=== PATIENT | male | born 1990 | race Caucasian/White ===

== ENCOUNTER 2019-03-18 17:47 | Emergency (ER) | payer SELFPAY ==
[2019-03-18 17:48] VITALS: BP 177/103; PULSE 78; RESP 18; TEMP 36.6; O2SAT 98
--- NOTE | 2019-03-18 18:27 | ED_ITS ---
HPI - Ear Problem <DANDRE Dominguez - Last Filed: 03/18/19 18:29> General Chief complaint: Ear Stated complaint: Feels like Left Eardrum Is About To Rupture Time Seen by Provider: 03/18/19 17:50 Source: patient Mode of arrival: Ambulatory Limitations: no limitations History of Present Illness HPI Narrative: The patient is a 28-year-old male of supraventricular tachycardia who presents with a chief complaint of left ear pain. He states that for the past few days he has had cough and congestion. He is trying Sudafed and Mucinex, and then his left ear pain got very bad today. He is concerned that his ear drum is ?about to burst.He states that he has a history of ear infections when he was younger. He denies any vomiting nausea fever or diarrhea or abdominal pain. He spoke with pharmacist who made recommendations, he states the iafv-jtj-awppeci medications are not working. Related Data Previous Rx's Medication Instructions Recorded pantoprazole 40 mg PO QDAY #90 tab 10/05/16 azithromycin See Rx Instructions .ROUTE 03/18/19 .COMPLEX #6 tab Allergies Allergy/AdvReac Type Severity Reaction Status Date / Time cephalexin [CEPHALEXIN] Allergy Severe CHEST Unverified 06/14/17 13:05 PAIN, ARMS 'REALLY RED' clindamycin [CLINDAMYCIN] Allergy Severe CHEST Unverified 06/14/17 13:05 PAIN, ARMS 'REALLY RED' Sulfa (Sulfonamide Allergy Intermediate RASH, Unverified 06/14/17 13:05 Antibiotics) DIAPHORESIS amoxicillin [AMOXICILLIN] Allergy Unknown Unverified 06/14/17 13:05 Penicillins [PENICILLINS] Allergy Unknown Unverified 06/14/17 13:05 omeprazole [OMEPRAZOLE] AdvReac Severe vomitting Unverified 06/14/17 13:05 Review of Systems <DANDRE Dominguez - Last Filed: 03/18/19 18:29> Review of Systems Narrative: GENERAL: Denies chills, fatigue, malaise, fever, sweats. HEENT: See HPI RESPIRATORY: Denies dyspnea, cough, wheezing, hemoptysis, sputum. CARDIOVASCULAR: Denies chest pain, palpitations, orthopnea, edema, GASTROINTESTINAL: Denies nausea, vomiting, abdominal pain, diarrhea, constipation, melena. : Denies dysuria, frequency, incontinence, hematuria, urinary retention. MUSCULOSKELETAL: denies weakness, joint pain, or bony pain SKIN: Denies rash, skin lesions, or other NEUROLOGIC: Denies weakness, headache, numbness, change in speech, confusion, seizures, incoordination. PSYCHIATRIC: No concerning psychosocial issues. 12 point review of systems is negative except for those stated above Patient History <DANDRE Dominguez - Last Filed: 03/18/19 18:29> Surgical History History of esophagogastroduodenoscopy (EGD) Status post colonoscopy Family History Mother Mitral valve prolapse Exam <DANDRE Dominguez - Last Filed: 03/18/19 18:29> Narrative Exam Narrative: GENERAL: This is a well-nourished, well-developed patient, in no acute distress HEAD: Atraumatic. Normocephalic. No temporal or scalp tenderness. EYES: Pupils equal round and reactive. Extraocular motions intact. No scleral icterus. No injection or drainage. ENT: Nose without bleeding, purulent drainage or septal hematoma. Throat without erythema, tonsillar hypertrophy or exudate. Uvula midline. Airway patent. Righ t TM pearly diaz. Left TM bulging and erythematous. NECK: Trachea midline. No JVD or lymphadenopathy. Supple, nontender, no meningeal signs. CARDIOVASCULAR: Regular rate and rhythm without murmurs, gallops, or rubs. RESPIRATORY: Clear to auscultation. Breath sounds equal bilaterally. No wheezes, rales, or rhonchi. Occasional cough. No increased respiratory effort. EXTREMITIES: No clubbing, cyanosis, or edema. No joint tenderness, effusion, or edema noted. BACK: Nontender without deformity or crepitance. No flank tenderness. NEURO: AOx3. SKIN: No rash or erythema on visible skin Initial Vital Signs Initial Vital Signs: Vital Signs Temperature 97.8 F 03/18/19 17:48 Pulse Rate 78 03/18/19 17:48 Respiratory Rate 18 03/18/19 17:48 Blood Pressure 177/103 H 03/18/19 17:48 Pulse Oximetry 98 03/18/19 17:48 <Dorothy Malcolm DO - Last Filed: 03/19/19 09:08> Initial Vital Signs Initial Vital Signs: Vital Signs Temperature 97.8 F 03/18/19 17:48 Pulse Rate 78 03/18/19 17:48 Respiratory Rate 18 03/18/19 17:48 Blood Pressure 177/103 H 03/18/19 17:48 Pulse Oximetry 98 03/18/19 17:48 Course <DANDRE Dominguez - Last Filed: 03/18/19 18:29> Vital Signs Vital signs: Vital Signs - 8 hr 03/18/19 17:48 Temperature 97.8 F Pulse Rate 78 Respiratory Rate 18 Blood Pressure 177/103 H Pulse Oximetry 98 <Dorothy Malcolm DO - Last Filed: 03/19/19 09:08> Vital Signs Vital signs: Vital Signs - 8 hr 03/18/19 17:48 Temperature 97.8 F Pulse Rate 78 Respiratory Rate 18 Blood Pressure 177/103 H Pulse Oximetry 98 Medical Decision Making <DANDRE Dominguez - Last Filed: 03/18/19 18:29> MDM Narrative Medical decision making narrative: The patient is a 28-year-old male who presents with a chief complaint of sudden onset of left ear pain. He has multiple drug allergies. He has otitis media on exam. Will start azithromycin. Discussed at length hzzt-hgu-gftvpon medications, adding a sinus rinse and Flonase. Patient has no questions or concerns upon discharge and states understanding of return precautions as well as follow-up care Discharge Plan Departure Patient Disposition: Home Clinical Impression: Otitis media Qualifiers: Otitis media type: unspecified Chronicity: acute Qualified Code(s): H66.90 - Otitis media, unspecified, unspecified ear Discharge Date/Time: 03/18/19 18:08 Instructions: Ear Infections (Alternative Therapy), DI for Otitis Media (Middle Ear Infection)-Child Activity Restrictions/Additional Instructions: I sent a prescription of azithromycin for your ear infection to [facility], [place]. This prescription should be about 10 dollars. Please continue to use aevh-rff-wwlunfd medications, had a sinus rinse and Flonase Please follow-up with primary care provider in the next few days. Please come back to emergency department for any acute concerns Prescriptions: New azithromycin 250 mg tablet See Rx Instructions .ROUTE .COMPLEX Qty: 6 RF: 0 No Action pantoprazole 40 MG tablet,delayed release (DR/EC) 40 mg PO QDAY Qty: 90 RF: 1 Referrals: Marilu Zarate DO [Primary Care Provider] -
== END 2019-03-18 18:08 | disposition home or self-care (01) ==
PROVIDERS: Emergency Provider Nurse Practitioner Family; PCP Family Medicine
DX: H66.90 Otitis media, unspecified, unspecified ear (principal)
CPT/HCPCS: 99281; 99283

== ENCOUNTER 2019-05-10 10:58 | Emergency (ER) | payer SELFPAY ==
[2019-05-10 11:13] VITALS: BP 153/77; PULSE 80; RESP 19; TEMP 36.5; O2SAT 96; BMI 31.7
--- NOTE | 2019-05-10 13:52 | DI.RAD.S_ITS ---
PROCEDURE: XR LUMBAR SPINE 2-3V INDICATIONS: back pain TECHNIQUE: 3 views of the lumbar spine were acquired. COMPARISON: None. FINDINGS: Bones: There are 5 lumbar-type vertebral bodies. The lowest intervertebral disk space is designated as L5-S1. The vertebral body heights are well-maintained without evidence to suggest an acute compression fracture. The bone mineralization is within normal limits. No prominent straightening/reversal of the normal lumbar lordosis is identified. There may be mild disc height loss at L4-5 and L5-S1 with associated early facet arthrosis. No spondylolisthesis is identified. Soft tissues: The soft tissues of the imaged abdomen and pelvis are within normal limits. IMPRESSION: 1. Lumbar straightening is suspicious for muscle spasm. Please correlate clinically. 2. Mild degenerative changes of the lower lumbar spine are suspected. Dictated by: Carlos Manuel Pearl M.D. on 05/10/2019 at 13:38 Approved by: Carlos Manuel Pearl M.D. on 05/10/2019 at 13:43
[2019-05-10] MEDS: CYCLOBENZAPRINE 10 MG TABLET PO (14:28)
[2019-05-10] MEDS: LIDOCAINE PATCH 1 EACH ADH..PATCH TOP (14:28)
[2019-05-10] MEDS: KETOROLAC 10 MG TABLET PO (14:33)
[2019-05-10] MEDS: HYDROCODONE/ACET 5/325 TABLET 2 TAB PO (15:45)
--- NOTE | 2019-05-10 16:12 | ED_ITS ---
HPI - Back Pain/Injury <DANDRE Dominguez - Last Filed: 05/10/19 19:32> General Chief Complaint: Back Pain/Injury Stated Complaint: 'my back' Time Seen by Provider: 05/10/19 13:26 Source: patient Mode of arrival: Ambulatory Limitations: no limitations History of Present Illness HPI Narrative: The patient is a 28-year-old male former smoker with history of SVT who presents with a chief complaint of lower back pain. He states he was lifting this morning, with a barbell on his shoulder any felt his legs wobble. He states he felt like his back while pulled. He states he had a full-size 15 kick barbell, with light weight. He states he put it down, then had severe back spasm in his right lower back. He states he did not take anything other than Tylenol. Went to work and had such bad pain that he fell over. He denies any incontinence of bowel, incontinence of bladder, saddle anesthesia, any numbness or tingling. He states that he was collapsing because his pain was so bad. Denies any previous back injuries. Related Data Previous Rx's Medication Instructions Recorded cyclobenzaprine 10 mg PO TID PRN #30 tab 05/10/19 hydrocodone-acetaminophen [[place]] 1 tab PO Q4-6H PRN #10 tab 05/10/19 ketorolac 10 mg PO TID PRN #14 tab 05/10/19 Allergies Allergy/AdvReac Type Severity Reaction Status Date / Time cephalexin [CEPHALEXIN] Allergy Severe CHEST Verified 05/10/19 11:17 PAIN, ARMS 'REALLY RED' clindamycin [CLINDAMYCIN] Allergy Severe CHEST Verified 05/10/19 11:17 PAIN, ARMS 'REALLY RED' Sulfa (Sulfonamide Allergy Intermediate RASH, Verified 05/10/19 11:17 Antibiotics) DIAPHORESIS amoxicillin [AMOXICILLIN] Allergy Unknown Verified 05/10/19 11:17 Penicillins [PENICILLINS] Allergy Unknown Verified 05/10/19 11:17 omeprazole [OMEPRAZOLE] AdvReac Severe vomitting Verified 05/10/19 11:17 Review of Systems <DANDRE Dominguez - Last Filed: 05/10/19 19:32> Review of Systems Narrative: GENERAL: Denies chills, fatigue, malaise, fever, sweats. HEENT: Denies sinus pain, ear pain, sore throat, difficulty swallowing, dizziness. RESPIRATORY: Denies dyspnea, cough, wheezing, hemoptysis, sputum. CARDIOVASCULAR: Denies chest pain, palpitations, orthopnea, edema, GASTROINTESTINAL: Denies nausea, vomiting, abdominal pain, diarrhea, constipation, melena. : Denies dysuria, frequency, incontinence, hematuria, urinary retention. MUSCULOSKELETAL: See HPI SKIN: Denies rash, skin lesions, or other NEUROLOGIC: Denies weakness, headache, numbness, change in speech, confusion, seizures, incoordination. PSYCHIATRIC: No concerning psychosocial issues. 12 point review of systems is negative except for those stated above Patient History <DANDRE Dominguez - Last Filed: 05/10/19 19:32> Surgical History History of esophagogastroduodenoscopy (EGD) Status post colonoscopy Family History Mother Mitral valve prolapse Social History Smoking Status: Former smoker Tobacco: How many years used: 2 Smokeless tobacco user: dissolvable tobacco (nicotine salt) alcohol intake: current (2 pints a wk ) substance use type: does not use Smoking Status: Former smoker alcohol intake frequency: a few times a month Alcohol type: beer Substance Use Type: does not use Exam <DANDRE Dominguez - Last Filed: 05/10/19 19:32> Narrative Exam Narrative: GENERAL: This is a well-nourished, well-developed patient, appears uncomfortable HEAD: Atraumatic. Normocephalic. No temporal or scalp tenderness. EYES: Pupils equal round and reactive. Extraocular motions intact. No scleral icterus. No injection or drainage. ENT: Nose without bleeding, purulent drainage or septal hematoma. Throat without erythema, tonsillar hypertrophy or exudate. Uvula midline. Airway patent. NECK: Trachea midline. No JVD or lymphade RESPIRATORY: Clear to auscultation. Breath sounds equal bilaterally. No wheezes, rales, or rhonchi. GASTROINTESTINAL: Abdomen soft, non-tender, nondistended. No hepato- splenomegaly, or palpable masses. No guarding. EXTREMITIES: No clubbing, cyanosis, or edema. No joint tenderness, effusion, or edema noted. Strength is equal upper and lower extremities bilaterally. BACK: No pain to C or T-spine palpation. Pain to L-spine palpation, pain to right paraspinal muscle palpation. No palpable step-offs or deformities. NEURO: AOx3. SKIN: No rash or erythema on visible skin. Initial Vital Signs Initial Vital Signs: Vital Signs Temperature 97.7 F 05/10/19 11:13 Pulse Rate 80 05/10/19 11:13 Respiratory Rate 05/10/19 11:13 Blood Pressure 153/77 H 05/10/19 11:13 Pulse Oximetry 96 05/10/19 11:13 <Luann Gamez MD - Last Filed: 05/11/19 07:07> Initial Vital Signs Initial Vital Signs: Vital Signs Temperature 97.7 F 05/10/19 11:13 Pulse Rate 80 05/10/19 11:13 Respiratory Rate 05/10/19 11:13 Blood Pressure 153/77 H 05/10/19 11:13 Pulse Oximetry 96 05/10/19 11:13 Scores <DANDRE Dominguez - Last Filed: 05/10/19 19:32> GCS [place] coma scale eye opening: Spontaneous Lucinda coma scale verbal response: Orientated Lucinda coma scale motor response: Obey commands Lucinda coma scale total score: 15 Course <DANDRE Dominguez - Last Filed: 05/10/19 19:32> Orders Ordered: Discontinued Medications Hydrocodone Bitart/Acetaminophen ([place] 5/325) 2 tab PO NOW ONE Stop: 05/10/19 15:22 Last Admin: 05/10/19 15:45 Dose: 2 tab Documented by: JUDAH Cyclobenzaprine HCl (Flexeril) 10 mg PO NOW ONE Stop: 05/10/19 13:53 Last Admin: 05/10/19 14:28 Dose: 10 mg Documented by: ARCHIE Ketorolac Tromethamine (Toradol) 60 mg IM NOW ONE Stop: 05/10/19 13:53 Last Admin: 05/10/19 14:28 Dose: Not Given Documented by: ARCHIE Ketorolac Tromethamine (Toradol) 10 mg PO NOW ONE Stop: 05/10/19 14:30 Last Admin: 05/10/19 14:33 Dose: 10 mg Documented by: ARCHIE Lidocaine (Lidoderm) 1 each TOP NOW ONE Stop: 05/10/19 13:53 Last Admin: 05/10/19 14:28 Dose: 1 each Documented by: ARCHIE Vital Signs Vital signs: Vital Signs - 8 hr 05/10/19 17:09 Pulse Rate 72 Respiratory Rate 18 Blood Pressure [Left Arm] 144/85 H Pulse Oximetry 99 <Luann Gamez MD - Last Filed: 05/11/19 07:07> Orders Ordered: Discontinued Medications Hydrocodone Bitart/Acetaminophen ([place] 5/325) 2 tab PO NOW ONE Stop: 05/10/19 15:22 Last Admin: 05/10/19 15:45 Dose: 2 tab Documented by: JUDAH Cyclobenzaprine HCl (Flexeril) 10 mg PO NOW ONE Stop: 05/10/19 13:53 Last Admin: 05/10/19 14:28 Dose: 10 mg Documented by: ARCHIE Ketorolac Tromethamine (Toradol) 60 mg IM NOW ONE Stop: 05/10/19 13:53 Last Admin: 05/10/19 14:28 Dose: Not Given Documented by: ARCHIE Ketorolac Tromethamine (Toradol) 10 mg PO NOW ONE Stop: 05/10/19 14:30 Last Admin: 05/10/19 14:33 Dose: 10 mg Documented by: ARCHIE Lidocaine (Lidoderm) 1 each TOP NOW ONE Stop: 05/10/19 13:53 Last Admin: 05/10/19 14:28 Dose: 1 each Documented by: ARCHIE Vital Signs Vital signs: Vital Signs - 8 hr 05/10/19 17:09 Pulse Rate 72 Respiratory Rate 18 Blood Pressure [Left Arm] 144/85 H Pulse Oximetry 99 MDM - Back Pain/Injury <DANDRE Dominguez - Last Filed: 05/10/19 19:32> Imaging Data Lumbar x-ray: Radiologist's Impression: Count includes the [facility] [address] [place] [id number] XRay Report Signed Patient: Tian Josue SMR#: [id number] : 1990Acct:[id number] Age/Sex: 28 / MDate of Service: 05/10/19 Loc: ED Accession Number: [id number] Procedure: XR lumbar spine 2-3V Ordering Provider: Shona Pino PROCEDURE: XR LUMBAR SPINE 2-3V INDICATIONS: back pain TECHNIQUE: 3 views of the lumbar spine were acquired. COMPARISON: None. FINDINGS: Bones: There are 5 lumbar-type vertebral bodies. The lowest intervertebral disk space is designated as L5-S1. The vertebral body heights are well-maintained without evidence to suggest an acute compression fracture. The bone mineralization is within normal limits. No prominent straightening/reversal of the normal lumbar lordosis is identified. There may be mild disc height loss at L4-5 and L5-S1 with associated early facet arthrosis. No spondylolisthesis is identified. Soft tissues: The soft tissues of the imaged abdomen and pelvis are within normal limits. IMPRESSION: 1. Lumbar straightening is suspicious for muscle spasm. Please correlate clinically. 2. Mild degenerative changes of the lower lumbar spine are suspected. Dictated by: Carlos Manuel Pearl M.D. on 05/10/2019 at 13:38 Approved by: Carlos Manuel Pearl M.D. on 05/10/2019 at 13:43 MDM Narrative Medical decision making narrative: The patient is a 28-year-old male who presents with a chief complaint of low back pain. He states he feels much improved with the above-stated therapies. He is able to ambulate with a walker he has no red flag symptoms of incontinence of bowel, incontinence of bladder, saddle anesthesia and states understanding that these are return precautions. I discussed at length the importance of following up with primary care provider, he may benefit from physical therapy or further evaluation. Discussed that narcotics cannot be combined with anything sedating, Flexeril cannot be sedating, lidocaine patches etcetera. Discussed at length coming back to the emergency department for any acute concerns. Patient felt comfortable going home. Patient has no questions or concerns upon discharge and states understanding of return precautions as well as follow-up care. Discharge Plan Departure Patient Disposition: Home Clinical Impression: Lumbar back pain Acute back pain Qualifiers: Back pain location: low back pain Back pain laterality: right Sciatica presence: with sciatica Sciatica laterality: sciatica of right side Qualified Code(s): M54.41 - Lumbago with sciatica, right side Discharge Date/Time: 05/10/19 17:30 Instructions: DI for Low Back Pain, DI for Back Pain With Sciatica, DI for Back Spasm, DI for Back Strain or Sprain Activity Restrictions/Additional Instructions: Thank you for trusting us with your care today. Your lower back x-ray showed no fractures, but was suspicious for early did which entered of changes and muscle spasm. According to [facility], your [place] prescription should cost approximately [address] at [facility], the cyclobenzaprine should be approximately 9 dollars, and the ketorolac should be approximately 25 dollars. I also suggest exex-agd-oppeogh lidocaine patches. I have given you a prescription of a narcotic for pain. Be aware that this can be constipating and sedating. I encouraged taking with a stool softener, pushing fluids and fiber. Do not take and drive, operate heavy machinery, etc. Do not combine it with any other sedating substances such as alcohol. The combination of narcotics and alcohol and/or other sedatives can be lethal. Please be aware that we do not provide refills of controlled substances in the emergency department. Please follow up with her primary care provider. Please be aware that the Flexeril can also be sedating I have given you a prescription of Toradol. This is an NSAID. Do not combine it with other NSAIDs such as Aleve or ibuprofen. I suggest taking it with some food, as it can irritate your stomach. Please come back to the emergency department for any acute concerns such as incontinence of bowel, incontinence of bladder or numbness in your groin. As I discussed back pain can take a while to get better. Please follow-up with primary care provider. You may benefit from physical therapy etcetera. Prescriptions: New hydrocodone-acetaminophen [[place]] 5-325 mg tablet 1 tab PO Q4-6H PRN (Reason: pain) Qty: 10 RF: 0 cyclobenzaprine 10 mg tablet 10 mg PO TID PRN (Reason: muscle spasm) Qty: 30 RF: 0 ketorolac 10 mg tablet 10 mg PO TID PRN (Reason: pain) Qty: 14 RF: 0 Referrals: Johnnie Wood MD [Primary Care Provider] -
[2019-05-10 17:09] VITALS: BP 144/85; PULSE 72; RESP 18; O2SAT 99
== END 2019-05-10 17:30 | disposition home or self-care (01) ==
PROVIDERS: Emergency Provider Nurse Practitioner Family; PCP Internal Medicine Cardiovascular Disease
DX: M54.6 Pain in thoracic spine (principal); M54.41 Lumbago with sciatica, right side
CPT/HCPCS: 72100; 99283

== ENCOUNTER 2019-05-14 19:45 | Emergency (ER) | payer SELFPAY ==
[2019-05-14 20:03] VITALS: BP 157/94; PULSE 84; RESP 19; TEMP 36.5; O2SAT 97; BMI 31.7
--- NOTE | 2019-05-14 22:50 | ED_ITS ---
HPI - Back Pain/Injury General Chief Complaint: Back Pain/Injury Stated Complaint: UNABLE TO MOVE Time Seen by Provider: 05/14/19 22:50 Source: patient Mode of arrival: Ambulatory Limitations: no limitations History of Present Illness HPI Narrative: 20-year-old male comes emergency department complaint of back pain. Patient acutely injured his back Monday. He states he was lifting weights. He was not lifting very heavy weight but he felt some spasm in his back. He stopped did not continue with his workout. Patient states that throughout the day he had increasing tightness in his back that radiated the anand k of his legs and to his groin. He states that he does have this heat that sort of running down into his legs and groin area. He states that there is no numbness. He can feel touch. He denies any weakness. He denies any loss of bowel or bladder control. He has not any fevers. He has not had back issues in past. He was doing better today his spend most of his time in bed taking medications as prescribed when they went out to dinner he states when he walked back to his car he did fairly well but then getting in and out of his car his pain significantly increased. Patient states that now it is quite difficult for him to get around. He has been taking, [place] and cyclobenzaprine 3 times daily his most recent dose was at 7:30 p.m.. He has not had any prior back surgeries, he does have a history of SVT was offered ablation but deferred. 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 He denies any other current medical issues. Related Data Previous Rx's Medication Instructions Recorded cyclobenzaprine 10 mg PO TID PRN #30 tab 05/10/19 hydrocodone-acetaminophen [[place]] 1 tab PO Q4-6H PRN #10 tab 05/10/19 ketorolac 10 mg PO TID PRN #14 tab 05/10/19 oxycodone 5 mg PO Q8H PRN #7 tab 05/15/19 Allergies Allergy/AdvReac Type Severity Reaction Status Date / Time cephalexin [CEPHALEXIN] Allergy Severe CHEST Verified 05/10/19 11:17 PAIN, ARMS 'REALLY RED' clindamycin [CLINDAMYCIN] Allergy Severe CHEST Verified 05/10/19 11:17 PAIN, ARMS 'REALLY RED' Sulfa (Sulfonamide Allergy Intermediate RASH, Verified 05/10/19 11:17 Antibiotics) DIAPHORESIS amoxicillin [AMOXICILLIN] Allergy Unknown Verified 05/10/19 11:17 Penicillins [PENICILLINS] Allergy Unknown Verified 05/10/19 11:17 omeprazole [OMEPRAZOLE] AdvReac Severe vomitting Verified 05/10/19 11:17 Review of Systems Review of Systems ROS Unobtainable: All systems reviewed & are unremarkable except as noted in HPI and below Patient History Surgical History History of esophagogastroduodenoscopy (EGD) Status post colonoscopy Social History Smoking Status: Former smoker Tobacco: How many years used: 2 Smokeless tobacco user: dissolvable tobacco (nicotine salt) alcohol intake: current (2 pints a wk ) substance use type: does not use Smoking Status: Former smoker alcohol intake frequency: a few times a month Alcohol type: beer Substance Use Type: does not use Exam Narrative Exam Narrative: GENERAL: Alert and oriented x three, well-nourished, well- appearing male in moderate distress. HEENT: Head normocephalic, atraumatic, EOMI, pupils reactive, face symmetric, moist mucous membranes NECK: Supple, full range of motion CARDIOVASCULAR: Regular rate and rhythm without murmurs, rubs or gallops. RESPIRATORY: Breath sounds equal bilaterally, no wheezes rales or rhonchi. ABDOMEN: Soft, nontender. Normoactive bowel sounds all 4 quadrants. No guarding or rebound, rigidity, no mass : No CVA tenderness. BACK: No cervical, thoracic or lumbar vertebral point tenderness. Patient has decreased range of motion. Patient prefers to be seated upright. Rectal exam is deferred, no saddle anesthesia. Patient has increased pain with straight leg raise bilaterally. Muscle strength is 5/5 in lower extremities, DTRs are 2/4 and lower extremities. Dorsalis pedis and tibialis pulses are 2+ and lower extremities. Sensation is intact in the lower extremities. EXTREMITIES: Normal range of motion, no clubbing or edema. Neurovascularly intact NEUROLOGICAL: Cranial nerves II through XII grossly intact. Moving all extremities SKIN: Warm, dry, no petechiae, no rashes or lesions. Initial Vital Signs Initial Vital Signs: Vital Signs Temperature 97.7 F 05/14/19 20:03 Pulse Rate 84 05/14/19 20:03 Respiratory Rate 19 05/14/19 20:03 Blood Pressure 157/94 H 05/14/19 20:03 Pulse Oximetry 97 05/14/19 20:03 Course Orders Ordered: ED Orders 05/14/19 23:27 CT lumbar spine wo con Stat Discontinued Medications Diazepam (Valium) 10 mg PO NOW ONE Stop: 05/14/19 23:22 Last Admin: 05/14/19 23:37 Dose: 10 mg Documented by: RODRI Ketorolac Tromethamine (Toradol) 10 mg PO NOW ONE Stop: 05/14/19 23:22 Last Admin: 05/14/19 23:37 Dose: 10 mg Documented by: RODRI Oxycodone HCl (Percolone) 10 mg PO NOW ONE Stop: 05/14/19 23:22 Last Admin: 05/14/19 23:37 Dose: 10 mg Documented by: RODRI Vital Signs Vital signs: Vital Signs - 8 hr 05/14/19 20:03 Temperature 97.7 F Pulse Rate 84 Respiratory Rate 19 Blood Pressure 157/94 H Pulse Oximetry 97 MDM - Back Pain/Injury Imaging Data L-spine CT: Radiologist's Impression: No acute osseous or alignment abnormality lumbar spine. Moderate posterior disc bulge at L4-L5. Small posterior disc bulge at L5-S1. Small stone present on the inferior endplate of L4. No significant neural foraminal narrowing at either location. Soft tissues are unremarkable. [facility] Narrative Medical decision making narrative: Recheck after medications, patient states he is not feeling that much better but he is lying on his side reclining and appears much more comfortable. We reviewed his CT findings he does have a disc bulge at L4-L5 and L5-S1. Reviewed what these findings knee pain, signs and symptoms to watch for return precautions. I recommended he follow-up with his primary care. He found the medications from this evening helpful. Given a short prescription for oxycodone which she can take in place of his hydrocodone if needed he still does have some medication at home and recommend to continue with his usual regimen otherwise. Patient was given a work note for several more days and encouraged to follow up with his primary care as he may need long- term follow-up if he continues to have symptoms. Discharge Plan Departure Patient Disposition: Home Clinical Impression: Back pain Instructions: DI for Low Back Pain Activity Restrictions/Additional Instructions: Follow-up with her primary care physician for recheck, you do show seem bulging discs at L4-L5 region and L5-S1 region in your lower spine you can discuss options for future treatment. Take medications as prescribed, these medications can make you sleepy, do not drive, perform hazardous activities or make any major decisions while taking this medication. You may take oxycodone instead of hydrocodone with your usual combination of medications. Do not take both of these together. Prescription was sent to [facility]. Return to the ER for fevers greater 100.4 F, loss of bowel or bladder control, new numbness, weakness or inability to use your extremities, saddle anesthesia, passing out, new chest pain or shortness of breath, persistent vomiting or other new or concerning symptoms. Prescriptions: New oxycodone 5 mg tablet 5 mg PO Q8H PRN (Reason: pain) Qty: 7 RF: 0 No Action hydrocodone-acetaminophen [[place]] 5-325 mg tablet 1 tab PO Q4-6H PRN (Reason: pain) Qty: 10 RF: 0 cyclobenzaprine 10 mg tablet 10 mg PO TID PRN (Reason: muscle spasm) Qty: 30 RF: 0 ketorolac 10 mg tablet 10 mg PO TID PRN (Reason: pain) Qty: 14 RF: 0 Referrals: Johnnie Wood MD [Primary Care Provider] - Stand Alone Forms: Work Release Note
--- NOTE | 2019-05-14 23:27 | DI.CT.S_ITS ---
PROCEDURE: CT LUMBAR SPINE WO CON INDICATIONS: lower lumbar pain, worsening with time. TECHNIQUE: Noncontrast 3 mm thick sections acquired from the T12 level to the sacrum. Sagittal and coronal reformats were constructed. For radiation dose reduction, the following was used: automated exposure control. COMPARISON: None. FINDINGS: Image quality: Excellent. Bones: There is normal bony alignment. No acute vertebral body compression fractures. No suspicious lytic or blastic bony lesions. There is moderate posterior disc bulge at L4-L5 and mild posterior disc bulge at L3-L4 and L5-S1. Central spinal caliber is moderately narrowed at L4-L5 and mildly narrowed at L5-S1. The neural foramina are patent. No pars defects. Soft tissues: No retroperitoneal masses or hematomas. Visualized aorta is normal in caliber. IMPRESSION: 1. No acute images and lumbar spine. 2. Degenerative disc disease at L3-L4, L4-L5 and L5-S1. 3. Moderate central canal stenosis at L4-L5. Dictated by: Mustapha Muir M.D. on 05/15/2019 at 7:52 Approved by: Mustapha Muir M.D. on 05/15/2019 at 8:00
[2019-05-14] MEDS: KETOROLAC 10 MG TABLET PO (23:37)
[2019-05-14] MEDS: diazePAM 5 MG TABLET 10 MG PO (23:37)
[2019-05-14] MEDS: OXYCODONE IR 5 MG TABLET 10 MG PO (23:37)
[2019-05-15 01:30] VITALS: BP 118/78; PULSE 66; RESP 15; O2SAT 94
== END 2019-05-15 01:30 | disposition home or self-care (01) ==
PROVIDERS: Emergency Provider Emergency Medicine; PCP Internal Medicine Cardiovascular Disease
DX: M54.9 Dorsalgia, unspecified (principal)
CPT/HCPCS: 72131; 99283; 99284

== ENCOUNTER 2019-11-05 12:29 | Outpatient (RCR) | payer OTHER, MEDICAID, SELFPAY ==
--- NOTE | 2019-11-05 16:10 | PT.OPPOC ---
Physical, Occupational & Speech Therapy At [facility] Current Diagnoses Lumbago with sciatica, right side (11/05/19) Other abnormalities of gait and mobility (11/05/19) Abnormal posture (11/05/19) Weakness (11/05/19) Visit Care Team Role Provider Type Mayank Wood DO Attending Provider Physician Primary Care Provider Referring Provider Specialty: [facility] Address: [address] [place] [address], [facility] Email: [email or web address] Plan Of Care PT-OP-T Assessment and Plan Start: 11/05/19 12:19 Freq: Status: Active Protocol: Document 11/05/19 12:59 [facility] (Rec: 11/05/19 13:49 [facility] [id number]) Physical Therapy Assessment Rehab Potential Rehabilitation Potential Good Evaluation Complexity Number of Personal Factors/Comorbidities 1-2 Number of Body Systems Impaired 4 or More Clinical Presentation at Evaluation Evolving Impairments Impairments Activity Tolerance,Balance, Functional Activities, Functional Mobility,Gait,Pain, Posture,ROM,Soft Tissue Mobility,Strength Goals posture Security Controls Assessor Goal (LTG) Pt will present with good posture as demonstrated by 4/5 on VCT LTG Duration 01/05/20 work Short Term Goal (STG) Pt will demo good lifting mechanics STG Duration 12/05/19 Security Controls Assessor Goal (LTG) Pt will be able to complete work without any inc in pain. LTG Duration 01/05/20 strength Short Term Goal (STG) Pt will be indep with HEP. STG Duration 12/05/19 Security Controls Assessor Goal (LTG) Pt will show 5/5 strength in B LE in all planes and LPM & EFT of at least 4/5 to show improved core stability to allow him to do the requirements of his job. LTG Duration 01/05/20 gait Long-Term Goal (LTG) pt will have good gait mechanics without cueing. LTG Duration 01/05/20 Assessment Summary Assessment Pt presents with LBP with occasional radicaular pain into L ant thigh, and B knee pain that makes it difficult to participate in his job. He wears a back brace all day to prevent pain from getting too bad, but does get pain with some lifting and long hours of work. He would benefit from skilled PT to work on appropriate movement patterns, gait mechanics, improve ROM, and inc core stability & LE strength. Physical Therapy Plan Frequency and Duration Frequency of Treatment 1-2x/week Duration of Treatment 2 months Plan of Care Start Date 11/05/19 Plan of Care End Date 01/05/20 Therapeutic Interventions Therapeutic Interventions Aquatic Therapy,Balance Training,Gait Training,Home Exercise Program,Joint Mobilizations,Manual Therapy, Neuromuscular Re-education, Patient/Caregiver Education, Self-Care/Home Management,Soft Tissue Mobilization,Taping, Therapeutic Activities, Therapeutic Exercises Modalities Cold Pack/Ice Massage,Electric Stimulation,Hot Packs Next Visit Focus/Plan Next Note Type Treatment Note Next Visit Plan work on core stability & posture, review HEP, manual hip inf mobs & hip on axis Plan of Care Dates Plan of Care Start Date 11/05/19 Plan of Care End Date 01/05/20 Electronically Signed by: Amaris Melvin, PT 11/06/19 0738 Please Sign and Return: I have reviewed this Plan of Care and certify that the skilled therapy services above are required to meet the patient?s needs. Physician Signature Date Printed Name and Credentials Clinical Instructor Signature Printed Name and Credentials
--- NOTE | 2019-11-05 16:10 | PT.OIE ---
Current Diagnoses Lumbago with sciatica, right side (11/05/19) Other abnormalities of gait and mobility (11/05/19) Abnormal posture (11/05/19) Weakness (11/05/19) Past Medical History (Last Updated 06/17/19 @ 15:14 by Mayank Wood DO) Inguinal hernia (Acute) Past Surgical History (Last Reviewed 05/14/19 @ 23:27 by Shona Barnes DO) History of esophagogastroduodenoscopy (EGD) Status post colonoscopy Visit Care Team Role Provider Type Mayank Wood DO Attending Provider Physician Primary Care Provider Referring Provider Specialty: [facility] Address: [address] [place] [address], [facility] Email: [email or web address] Physical Therapy Initial Evaluation PT-OP-A Visit Information Start: 11/05/19 12:19 Freq: Status: Active Protocol: Document 11/05/19 12:59 [facility] (Rec: 11/05/19 13:49 [facility] [id number]) Out-Patient Physical Therapy Visit Information Visit Information Visit Type Initial Evaluation Visit Start Time 13:01 Visit Stop Time 13:45 Total Visit Minutes 44 Visit Number 1 Number of LIABILITY CLAIMS MANAGER Visits 0 PT-OP-B Current Condition Start: 11/05/19 12:19 Freq: Status: Active Protocol: Document 11/05/19 12:59 [facility] (Rec: 11/05/19 13:49 [facility] [id number]) Current Condition History of Current Condition Onset Date May Current Complaints back pain & L ant thigh pain, R knee pain History of Current Condition In May, pt was using Stream5 to squat and 3rd time going up, his back shook. He started having mult mm spasms and legs gave out. He couldn't walk for a week then used a wlaker for a week. Then it went away. now, he is getting a shooting pain inside his leg in ant thigh. Chiro thinks it is how he is sleeping. He started using a a pillow btwn his legs and leg pain ahs been better. Has to wear aback brace (meuller) at work and move slow to prevent pain. When not wearing it, he has to be more aware of his back and keeping his back straight. Pt reports pain is intermittent. Pt has history of CP w/ mostly affecting his legs. He toe walked until HS then he focused on walking with heel stride. He IR his LEs and toe walks at the end of a 13 hr day. Pt reprots B knees have been hurting when bending and L sometimes goes away but R knee isn't going away. squatting is difficult. Pt is concerned about back going out again. Pt has history of RA in family and has changed to plant based diet which has helped his joints. Sometimes when reaching in the truck, he gets back pain and R shoulder blade area feels like its tearing. He works up to 80 hours. Pt reprots when he takes his back brace off, he has difficulty sitting at first. only small tweak to back prior to this injury Prior Treatments and Tests chiropractor since June lumbar CT: IMPRESSION: 1. No acute images and lumbar spine. 2. Degenerative disc disease at L3-L4, L4-L5 and L5-S1. 3. Moderate central canal stenosis at L4-L5. Treatment Goals Patient/Caregiver Goals improve fluidity of walk and run, wants to make sure he doesn't get worse PT-OP-C Subjective Start: 11/05/19 12:19 Freq: Status: Active Protocol: Document 11/05/19 12:59 [facility] (Rec: 11/05/19 13:49 [facility] [id number]) Patient Questionnaires Oswestry Low Back Index Oswestry Score 22% OP-PT Pain Assessment Location LBP Pain Location Details lumbosacral down center Intensity 5 Scale Used Numeric (0 - 10) Description Sharp,With Movement Description- Other thigh is 8/10-deep pain; bakc painfeels like going out. knee 4/10 Frequency Intermittent Variations/Patterns B knees, L ant thigh Pain Aggravating Factors Lifting Other Pain Aggravating Factors twisting, work day Other Pain Alleviating Factors lay odwn on back and abd legs while on wall, walking, tigerbalm PT-OP-F Manual Assessment Start: 11/05/19 12:19 Freq: Status: Active Protocol: Document 11/05/19 12:59 [facility] (Rec: 11/05/19 13:49 [facility] [id number]) Manual Assessments Soft Tissue Assessment Soft Tissue Mobility Assessment R> L ES tightness ; tight HS, calf & PF Joint Mobility Assessment Joint Mobility Assessment equal greater troch & pelvis height PT-OP-G Mobility & Gait Start: 11/05/19 12:19 Freq: Status: Active Protocol: Document 11/05/19 12:59 [facility] (Rec: 11/05/19 13:49 [facility] [id number]) OP Gait Assessment Comments Gait Comments IR of thighs, LUE rigid during gait, dec wt acceptnace on LLE PT-OP-J Posture/Palpation/Skin Start: 11/05/19 12:19 Freq: Status: Active Protocol: Document 11/05/19 12:59 [facility] (Rec: 11/05/19 13:49 [facility] [id number]) Posture Evaluation [facility] Postural Classification System Wally Postural Classifications Posterior/Anterior Vertebral Compression Test 1 Elbow Flexion Test 3 Lumbar Protective Mechanism Left AP 3 Lumbar Protective Mechanism Right AP 1 Lumbar Protective Mechanism Left PA 2 Lumbar Protective Mechanism Right PA 1 PT-OP-K Range of Motion Start: 11/05/19 12:19 Freq: Status: Active Protocol: Document 11/05/19 12:59 [facility] (Rec: 11/05/19 13:49 [facility] [id number]) Lumbar Spine Range of Motion Lumbar Spine Active Degrees Flexion 34 Extension 4 Rotation Left 40 Rotation Right 34 Lateral Flexion Left 21 Lateral Flexion Right 15 ROM Limitations Soft Tissue Tightness Comments pain w/ flex; relief w/ext; feels tight w/ rot PT-OP-L Special Tests Start: 11/05/19 12:19 Freq: Status: Active Protocol: Document 11/05/19 12:59 [facility] (Rec: 11/05/19 13:49 [facility] [id number]) Special Tests Lumbar Spine Special Tests Straight Leg Raise Test Results pain in ant hip of hip pulled to chest Cliff Test Results about 40-45 deg B HS tightness Slump Test Results neg B PT-OP-M Strength Start: 11/05/19 12:19 Freq: Status: Active Protocol: Document 11/05/19 12:59 [facility] (Rec: 11/05/19 13:49 [facility] [id number]) Hip Strength Hip Manual Muscle Testing Right Flexion (L2) 4+ Good+ Extension (S1) 4- Good- Abduction 4+ Good+ External Rotation 4+ Good+ Internal Rotation 5 Normal Left Flexion (L2) 4+ Good+ Extension (S1) 4- Good- Abduction 5 Normal External Rotation 4+ Good+ Internal Rotation 5 Normal Knee Strength Knee Manual Muscle Testing Right Flexion (S2) 4+ Good+ Extension (L3) 5 Normal Comments pain w/ flex Left Flexion (S2) 5 Normal Extension (L3) 5 Normal Ankle/Foot Strength Ankle and Foot Manual Muscle Testing Right Dorsiflexion (L4) 5 Normal Left Dorsiflexion (L4) 5 Normal PT-OP-Q Treatments Start: 11/05/19 12:19 Freq: Status: Active Protocol: Document 11/05/19 12:59 [facility] (Rec: 11/05/19 13:49 [facility] [id number]) Therapeutic Exercises Supine Exercises pelvic tilt Supine Exercise Name post Reps/Minutes 10 Comments tactile cueing Standing Exercises fwd flex stretch Side bilateral Reps/Minutes 30sec Comments reaching onto counter- stretches HS & calf Other Exercises cat/camel Reps/Minutes 10 PT-OP-T Assessment and Plan Start: 11/05/19 12:19 Freq: Status: Active Protocol: Document 11/05/19 12:59 [facility] (Rec: 11/05/19 13:49 [facility] [id number]) Physical Therapy Assessment Rehab Potential Rehabilitation Potential Good Evaluation Complexity Number of Personal Factors/Comorbidities 1-2 Number of Body Systems Impaired 4 or More Clinical Presentation at Evaluation Evolving Impairments Impairments Activity Tolerance,Balance, Functional Activities, Functional Mobility,Gait,Pain, Posture,ROM,Soft Tissue Mobility,Strength Goals posture Custodial Goal (LTG) Pt will present with good posture as demonstrated by 4/5 on VCT LTG Duration 01/05/20 work Short Term Goal (STG) Pt will demo good lifting mechanics STG Duration 12/05/19 Custodial Goal (LTG) Pt will be able to complete work without any inc in pain. LTG Duration 01/05/20 strength Short Term Goal (STG) Pt will be indep with HEP. STG Duration 12/05/19 Custodial Goal (LTG) Pt will show 5/5 strength in B LE in all planes and LPM & EFT of at least 4/5 to show improved core stability to allow him to do the requirements of his job. LTG Duration 01/05/20 gait Custodial Goal (LTG) pt will have good gait mechanics without cueing. LTG Duration 01/05/20 Assessment Summary Assessment Pt presents with LBP with occasional radicaular pain into L ant thigh, and B knee pain that makes it difficult to participate in his job. He wears a back brace all day to prevent pain from getting too bad, but does get pain with some lifting and long hours of work. He would benefit from skilled PT to work on appropriate movement patterns, gait mechanics, improve ROM, and inc core stability & LE strength. Physical Therapy Plan Frequency and Duration Frequency of Treatment 1-2x/week Duration of Treatment 2 months Plan of Care Start Date 11/05/19 Plan of Care End Date 01/05/20 Therapeutic Interventions Therapeutic Interventions Aquatic Therapy,Balance Training,Gait Training,Home Exercise Program,Joint Mobilizations,Manual Therapy, Neuromuscular Re-education, Patient/Caregiver Education, Self-Care/Home Management,Soft Tissue Mobilization,Taping, Therapeutic Activities, Therapeutic Exercises Modalities Cold Pack/Ice Massage,Electric Stimulation,Hot Packs Next Visit Focus/Plan Next Note Type Treatment Note Next Visit Plan work on core stability & posture, review HEP, manual hip inf mobs & hip on axis
--- NOTE | 2020-02-03 17:33 | PT.OPDS ---
Current Diagnoses Lumbago with sciatica, right side (11/05/19) Other abnormalities of gait and mobility (11/05/19) Abnormal posture (11/05/19) Weakness (11/05/19) Visit Care Team Role Provider Type Myaank Wood DO Attending Provider Physician Primary Care Provider Referring Provider Specialty: [facility] Practice Address: [address] [place] [address], [facility] Email: [email or web address] Visit Number Visit Number 1 Discharge Summary PT-OP-T Assessment and Plan Start: 11/05/19 12:19 Freq: Status: Active Protocol: Document 02/03/20 17:32 [facility] (Rec: 02/03/20 17:33 [facility] [id number]) Physical Therapy Assessment Assessment Summary Assessment Pt only seen for eval d/t difficulty coordinating appointments with his work week. He is working very long hours and has very random days off, making it mroe difficult to schedule appointments. Pt reports with the holiday season, he does not think he will be able to make any appointmetns so DC at this time and pt encouraged to get a referal for PT again when he is able to attend in the future. Physical Therapy Plan Discharge Physical Therapy Discharge Reasons No Longer Attending PT
== END 2020-03-05 08:45 ==
LOC: PHYS 12:29
PROVIDERS: PCP Family Medicine; Referring Provider Family Medicine; Visit Provider Family Medicine
DX: M54.41 Lumbago with sciatica, right side (principal); R53.1 Weakness; R29.3 Abnormal posture; R26.89 Other abnormalities of gait and mobility
CPT/HCPCS: 97110; 97162

== ENCOUNTER 2020-09-29 12:25 | Emergency (ER) | payer OTHER, MEDICAID, SELFPAY ==
[2020-09-29] VITALS (8 sets, daily range): BP systolic 102–146; BP diastolic 51–89; PULSE 49–84; RESP 15; TEMP 36.6; O2SAT 98–100; BMI 24.3
--- NOTE | 2020-09-29 15:05 | ED.ABDPAIN ---
HPI - Abdominal Pain General Chief Complaint: Abdominal Pain Stated Complaint: stomach/bowel issue sent from clinic/[facility] Time Seen by Provider: 09/29/20 12:39 Source: patient Mode of arrival: Ambulatory Limitations: no limitations History of Present Illness HPI narrative: 30-year-old male former smoker with history of SVT presents at the request of the walk-in clinic for evaluation of a bulging painful lump in his right lower quadrant that comes and goes frequently. Is currently absent he is not having any pain. He lifts heavy objects frequently at work and was sent for concern of the possibility of hernia. He denies any trouble with bowel movements with the passage of gas. He has had no nausea or vomiting. He has no fever or chills. He is otherwise well and free of complaint Related Data Previous Rx's Medication Instructions Recorded montelukast 10 mg tablet 10 mg PO BEDTIME #30 tab 06/03/20 (Singulair) Allergies Allergy/AdvReac Type Severity Reaction Status Date / Time cephalexin [CEPHALEXIN] Allergy Severe CHEST Verified 09/29/20 12:41 PAIN, ARMS 'REALLY RED' clindamycin [CLINDAMYCIN] Allergy Severe CHEST Verified 09/29/20 12:41 PAIN, ARMS 'REALLY RED' Sulfa (Sulfonamide Allergy Intermediate RASH, Verified 09/29/20 12:41 Antibiotics) DIAPHORESIS amoxicillin [AMOXICILLIN] Allergy Unknown Verified 09/29/20 12:41 Penicillins [PENICILLINS] Allergy Unknown Verified 09/29/20 12:41 omeprazole [OMEPRAZOLE] AdvReac Severe vomitting Verified 09/29/20 12:41 Review of Systems Review of Systems Narrative: GENERAL: Denies chills, fatigue, malaise, fever, sweats. HEENT: Denies sinus pain, ear pain, sore throat, difficulty swallowing, dizziness. RESPIRATORY: Denies dyspnea, cough, wheezing, hemoptysis, sputum. CARDIOVASCULAR: Denies chest pain, palpitations, orthopnea, edema, GASTROINTESTINAL: See HPI. : Denies dysuria, frequency, incontinence, hematuria, urinary retention. MUSCULOSKELETAL: denies weakness, joint pain, or bony pain SKIN: Denies rash, skin lesions, or other NEUROLOGIC: Denies weakness, headache, numbness, change in speech, confusion, seizures, incoordination. PSYCHIATRIC: No concerning psychosocial issues. 12 point review of systems is negative except for those stated above Patient History Medical History (Updated 09/29/20 @ 17:26 by Idris Proctor DO) History of asthma Inguinal hernia Seasonal allergic rhinitis Surgical History History of esophagogastroduodenoscopy (EGD) Status post colonoscopy Family History Mother Mitral valve prolapse Social History Smoking Status: Former smoker Tobacco: How many years used: 2 Smokeless tobacco user: dissolvable tobacco (nicotine salt) alcohol intake: current (2 pints a wk ) substance use type: does not use Smoking Status: Former smoker alcohol intake frequency: a few times a month Alcohol type: beer Substance Use Type: does not use Exam Narrative Exam Narrative: GENERAL: [30] year old patient appears stated age. Well-developed patient, in mild distress. HEAD: Atraumatic. Normocephalic. EYES: Pupils equal round and reactive. Extraocular motions intact. No scleral icterus. No injection or drainage. ENT: Nose without bleeding, purulent drainage. Throat without erythema, tonsillar hypertrophy or exudate. Airway patent. NECK: Trachea midline. Non tender CARDIOVASCULAR: Regular rate and rhythm without murmurs, gallops, or rubs. RESPIRATORY: Clear to auscultation. Breath sounds equal bilaterally. No wheezes, rales, or rhonchi. GASTROINTESTINAL: Abdomen soft, non-tender, nondistended. No obvious hernia palpated while lying, with bearing down or in the standing position. Patient does state that he can feel it moving and coming up on occasion, I do question whether not he has a rent or early hernia EXTREMITIES: No edema or joint tenderness. BACK: Nontender without deformity or crepitance. No flank tenderness. NEURO: AOx3. SKIN: No rash or erythema of visible areas Initial Vital Signs Initial Vital Signs: Vital Signs Temperature 97.8 F 09/29/20 12:41 Pulse Rate 70 09/29/20 12:41 Respiratory Rate 15 09/29/20 12:41 Blood Pressure 146/89 H 09/29/20 12:41 Pulse Oximetry 100 09/29/20 12:41 Course Orders Ordered: ED Orders 09/29/20 15:14 US abdomen limited Stat Vital Signs Vital signs: Vital Signs - 8 hr 09/29/20 12:41 09/29/20 14:56 09/29/20 15:00 Temperature 97.8 F Pulse Rate 70 49 L 63 Respiratory Rate 15 Blood Pressure 146/89 H 116/70 Pulse Oximetry 100 100 100 09/29/20 15:30 09/29/20 16:00 09/29/20 16:30 Temperature Pulse Rate 53 L 84 51 L Respiratory Rate Blood Pressure 102/51 L 137/71 122/67 Pulse Oximetry 100 100 98 09/29/20 17:02 Temperature Pulse Rate 56 L Respiratory Rate Blood Pressure Pulse Oximetry 99 MDM - Abdominal Pain Imaging Data US - abdomen: Radiologist's Impression: [address] [id number] ReportSigned Patient: Tian Josue SMR#: [id number]: 1990Acct:[id number]/Sex: 30 / MDate of Service: 09/29/20Loc: EDAccession Number: [id number] Procedure: US abdomen limited Ordering Provider: Idris Proctor D.O. PROCEDURE: US ABDOMEN LIMITED INDICATIONS: right lower quadrant bulging sent for eval by [facility] TECHNIQUE: Real-time focused scanning was performed of the abdomen, with image documentation. COMPARISON: None. FINDINGS: No definite evidence of hernia, seen in the area of pain and concern, including with Valsalva maneuver. IMPRESSION: No definite hernia sonographically identified. Dictated by: Preston Santiago M.D. on 09/29/2020 at 16:35 Approved by: Preston Santiago M.D. on 09/29/2020 at 16:36 [facility] Narrative Medical decision making narrative: Patient's history is concerning for the presence of a hernia though there is no evidence on my exam or radiographically. Patient has no symptoms currently and physical exam is reassuring. Return precautions have been given and encouragement to follow up. We did discuss avoidance of heavy lifting, and straining on the toilet. Questions answered to his apparent satisfaction Discharge Plan Departure Patient Disposition: Home Clinical Impression: Abdominal hernia Qualifiers: Hernia type: unspecified Obstruction and gangrene presence: with obstruction but without gangrene Recurrence: non-recurrent Qualified Code(s): K46.0 - Unspecified abdominal hernia with obstruction, without gangrene Instructions: Abdominal Hernia Activity Restrictions/Additional Instructions: *You have been diagnosed with [right lower abdominal pain, likely early hernia] *What to do: *Please continue to take your regular medications as directed. [ ] New medication prescriptions sent to your pharmacy: [ ] [ ] New medication written as a paper prescription [x ] No new medications given * avoid heavy lifting, straining on the toilet and other activities that can build up pressure in her abdomen which will make this worse. * please contact Dr. Agosto at [facility] for evaluation and follow-up *Return to Emergency Department if you should have any new, worsening or concerning symptoms, such as [fever greater than 101 F, shaking chills, worsening pain, persistent vomiting or other bothersome symptoms] Prescriptions: No Action montelukast [Singulair] 10 mg tablet 10 mg PO BEDTIME Qty: 30 RF: 1 Referrals: Raghav Agosto MD [Physician] - Mayank Wood DO [Primary Care Provider] -
--- NOTE | 2020-09-29 15:14 | DI.US.S_ITS ---
PROCEDURE: US ABDOMEN LIMITED INDICATIONS: right lower quadrant bulging sent for eval by [facility] TECHNIQUE: Real-time focused scanning was performed of the abdomen, with image documentation. COMPARISON: None. FINDINGS: No definite evidence of hernia, seen in the area of pain and concern, including with Valsalva maneuver. IMPRESSION: No definite hernia sonographically identified. Dictated by: Preston Santiago M.D. on 09/29/2020 at 16:35 Approved by: Preston Santiago M.D. on 09/29/2020 at 16:36
== END 2020-09-29 18:15 | disposition home or self-care (01) ==
PROVIDERS: Emergency Provider Emergency Medicine; PCP Family Medicine
DX: K46.0 Unspecified abdominal hernia with obstruction, without gangrene (principal)
CPT/HCPCS: 76705; 99283

== ENCOUNTER 2020-10-05 19:07 | Emergency (ER) | payer OTHER, MEDICAID, SELFPAY ==
[2020-10-05 19:24] VITALS: BP 139/89; PULSE 82; RESP 16; TEMP 37; O2SAT 98; BMI 24.3
[2020-10-05] MEDS: KETOROLAC 30 MG/ML VIAL IM (19:57)
[2020-10-05] MEDS: CYCLOBENZAPRINE 10 MG TABLET PO (19:57)
--- NOTE | 2020-10-05 22:20 | ED_ITS ---
HPI - Back Pain/Injury General Chief Complaint: Back Pain/Injury Stated Complaint: BACK SPASM Time Seen by Provider: 10/05/20 19:36 Source: patient History of Present Illness HPI Narrative: 30M former smoker with extensive history of cardiac arrhythmia is presents with a chief complaint of left upper back pain worsening over the course of the day. He states that he was walking while at work and not engage in any particularly vigorous activity nor lifting any heavy objects when he felt pain increasing just medial to his left scapula. He states it is worse with motion and improves with rest. He denies any radiation of the pain. He denies associated symptoms such as dizziness, weakness or lightheadedness. He has had no chest pain or shortness of breath. He gets slightly nauseated when the pain intensifies but it improves with rest Related Data Previous Rx's Medication Instructions Recorded montelukast 10 mg tablet 10 mg PO BEDTIME #30 tab 06/03/20 (Singulair) cyclobenzaprine 10 mg tablet 10 mg PO TID PRN #14 tab 10/05/20 Allergies Allergy/AdvReac Type Severity Reaction Status Date / Time cephalexin [CEPHALEXIN] Allergy Severe CHEST Verified 09/29/20 12:41 PAIN, ARMS 'REALLY RED' clindamycin [CLINDAMYCIN] Allergy Severe CHEST Verified 09/29/20 12:41 PAIN, ARMS 'REALLY RED' Sulfa (Sulfonamide Allergy Intermediate RASH, Verified 09/29/20 12:41 Antibiotics) DIAPHORESIS amoxicillin [AMOXICILLIN] Allergy Unknown Verified 09/29/20 12:41 Penicillins [PENICILLINS] Allergy Unknown Verified 09/29/20 12:41 omeprazole [OMEPRAZOLE] AdvReac Severe vomitting Verified 09/29/20 12:41 Review of Systems Review of Systems Narrative: GENERAL: Denies chills, fatigue, malaise, fever, sweats. HEENT: Denies sinus pain, ear pain, sore throat, difficulty swallowing, dizziness. RESPIRATORY: Denies dyspnea, cough, wheezing, hemoptysis, sputum. CARDIOVASCULAR: Denies chest pain, palpitations, orthopnea, edema, GASTROINTESTINAL: Denies nausea, vomiting, abdominal pain, diarrhea, constipation, melena. : Denies dysuria, frequency, incontinence, hematuria, urinary retention. MUSCULOSKELETAL: See HPI SKIN: Denies rash, skin lesions, or other NEUROLOGIC: Denies weakness, headache, numbness, change in speech, confusion, seizures, incoordination. PSYCHIATRIC: No concerning psychosocial issues. 12 point review of systems is negative except for those stated above Patient History Medical History History of asthma Inguinal hernia Seasonal allergic rhinitis Surgical History History of esophagogastroduodenoscopy (EGD) Status post colonoscopy Family History Mother Mitral valve prolapse Social History Smoking Status: Former smoker Tobacco: How many years used: 2 Smokeless tobacco user: dissolvable tobacco (nicotine salt) alcohol intake: current (2 pints a wk ) substance use type: does not use Smoking Status: Former smoker alcohol intake frequency: a few times a month Alcohol type: beer Substance Use Type: does not use Exam Narrative Exam Narrative: GEN: AOx3 and in mild distress EYES: Pupils are equal, round, and reactive to light and accommodation. Extraoccular muscles are intact bilaterally. There is no subconjunctival hemorrhage or exudate. CHEST: Lungs are clear to auscultation bilaterally and free of wheezes, rales, or rhonchi. Heart rate is regular rhythm, there are no murmurs, clicks, rubs, or gallops. There is no chest wall tenderness. ABD: Abdomen is soft and nontender. There is no guarding or rebound. Bowel sounds are normal in all 4 quadrants. There is no mass or organomegaly. EXT: Full painless ROM of all extremities with no loss of sensation or strength. BACK: wax pot tender but free of any obvious external abnormalities. Patient exam notes decreased range of motion and muscle spasm, but no CVA tenderness, or vertebral point tenderness. There are no symptoms of cauda equina such as saddle anesthesia, and decreased reflexes, decreased sensation or strength. SKIN: Warm, pink, and dry. No erythema or rash Initial Vital Signs Initial Vital Signs: Vital Signs Temperature 98.6 F 10/05/20 19:24 Pulse Rate 82 10/05/20 19:24 Respiratory Rate 16 10/05/20 19:24 Blood Pressure 139/89 10/05/20 19:24 Pulse Oximetry 98 10/05/20 19:24 Course Orders Ordered: Discontinued Medications Cyclobenzaprine HCl (Cyclobenzaprine 10 Mg Tablet) 10 mg PO NOW ONE Stop: 10/05/20 19:38 Last Admin: 10/05/20 19:57 Dose: 10 mg Documented by: FLOR Cyclobenzaprine HCl (Cyclobenzaprine 10 Mg Prepack) 1 bottle MISC SEEINSTR ONE Stop: 10/05/20 22:26 Last Admin: 10/05/20 22:31 Dose: 1 bottle Documented by: FLOR Ketorolac Tromethamine (Ketorolac 30 Mg/Ml Vial) 30 mg IM NOW ONE Stop: 10/05/20 19:38 Last Admin: 10/05/20 19:57 Dose: 30 mg Documented by: FLOR Vital Signs Vital signs: Vital Signs - 8 hr 10/05/20 22:33 Pulse Rate 68 Respiratory Rate 16 Blood Pressure 138/76 Pulse Oximetry 98 Discharge Plan Departure Patient Disposition: Home Clinical Impression: Thoracic back sprain Qualifiers: Encounter type: initial encounter Qualified Code(s): S23.9XXA - Sprain of unspecified parts of thorax, initial encounter Instructions: DI for Back Spasm Activity Restrictions/Additional Instructions: *You have been diagnosed with [thoracic spasm ] *What to do: *Please continue to take your regular medications as directed. [x ] New medication prescriptions sent to your pharmacy: [ [facility]] [ ] New medication written as a paper prescription [ ] No new medications given *Please follow up with your primary care provider in 2-3 days, call for an appointment. Let them know you were seen in the Emergency Department and that we ask that you be seen in follow up. We will electronically transmit a record of today's note if your PCP is in our system *If you do not have a primary care provider please contact the [facility] Resource line at [phone]. They will ask some questions about your medical history and help get you set up with a doctor in the community. *Return to Emergency Department if you should have any new, worsening or concerning symptoms, such as [fever greater than 101 F, shaking chills, worsening pain, persistent vomiting or other bothersome symptoms] Prescriptions: New cyclobenzaprine 10 mg tablet 10 mg PO TID PRN (Reason: muscle spasm) Qty: 14 RF: 0 No Action montelukast [Singulair] 10 mg tablet 10 mg PO BEDTIME Qty: 30 RF: 1 Referrals: Mayank Wood, [Primary Care Provider] -
[2020-10-05] MEDS: CYCLOBENZAPRINE 10 MG PREPACK 1 BOTTLE MISC (22:31)
[2020-10-05 22:33] VITALS: BP 138/76; PULSE 68; RESP 16; O2SAT 98
== END 2020-10-05 22:33 | disposition home or self-care (01) ==
PROVIDERS: Emergency Provider Emergency Medicine; PCP Family Medicine
DX: S23.9XXA Sprain of unspecified parts of thorax, initial encounter (principal)
CPT/HCPCS: 96372; 99283; J1885

== ENCOUNTER → 2020-10-31 11:18 | Outpatient (CLI) | payer OTHER, MEDICAID, SELFPAY ==
[2020-10-31 14:12] LABS: COVID19 -Nasal RAPID Negative (Negative)
== END ==
PROVIDERS: PCP Family Medicine; Visit Provider Nurse Practitioner
DX: Z01.812 Encounter for preprocedural laboratory examination (principal); Z20.822 Contact with and (suspected) exposure to COVID-19
CPT/HCPCS: 87635; C9803

== ENCOUNTER 2020-11-09 13:05 | Emergency (ER) | payer OTHER, MEDICAID, SELFPAY ==
[2020-11-09 13:17] VITALS: BP 158/97; PULSE 96; RESP 20; TEMP 36.6; O2SAT 100
--- NOTE | 2020-11-09 13:34 | DI.US.S_ITS ---
PROCEDURE: US ARTERIAL DUPLEX LE LT INDICATIONS: ?GROIN PSEUDOANEURYSM. RECENT HEART CATHERITIZATION. TECHNIQUE: Color and pulse Doppler interrogation was performed of the left lower extremity arterial system, with image documentation. Images of the venous system were also acquired. COMPARISON: [facility], [place], US ARTERIAL LOWER EXTREMITY DOPPLER LEFT, 11/03/2020, 19:14. FINDINGS: In this patient with this given history, scrutiny is given to pseudoaneurysm of the groin. No findings of a groin pseudoaneurysm can be seen. Common femoral artery: 143 cm/sec, with triphasic flow. Deep femoral artery: 90 cm/sec, with triphasic flow. Proximal superficial femoral artery: 88 cm/sec, with triphasic flow. On these images, no venous abnormality is seen. IMPRESSION: Negative for pseudoaneurysm. No regional arterial abnormality can be seen. No left lower extremity venous abnormality is seen. Dictated by: Brandon Aguilar M.D. on 11/09/2020 at 15:45 Approved by: Brandon Aguilar M.D. on 11/09/2020 at 15:47
--- NOTE | 2020-11-09 17:43 | ED.EXTPRO ---
HPI - Extremity Problem <DEWAYNE Caballero - Last Filed: 11/09/20 17:54> General Chief complaint: Extremity Problem,Nontraumatic Stated complaint: groin surgery site pain/knot/green color Time Seen by Provider: 11/09/20 13:34 Source: patient Mode of arrival: Ambulatory History of Present Illness HPI Narrative: 30-year-old male presents to the ED with concern for left groin pseudoaneurysm following heart catheterization for SVT ablation on November 03. Patient reports had difficulty with hemostasis while in the hospital and had stayed the night after bleeding from his groin site 4 times. He reports he has a history of low platelets without known cause. He takes a baby aspirin every day for his history of SVT but is on no other anticoagulants. He reports having color changes to the left groin but no swelling at this time. He was concerned about a small hard lump at the site and was told it might be a pseudoaneurysm and was told to come in for a ultrasound. He denies any chest pain, palpitations, shortness of breath, swelling at groin site. Related Data Previous Rx's Medication Instructions Recorded montelukast 10 mg tablet 10 mg PO BEDTIME #30 tab 06/03/20 (Singulair) cyclobenzaprine 10 mg tablet 10 mg PO TID PRN #14 tab 10/05/20 Allergies Allergy/AdvReac Type Severity Reaction Status Date / Time cephalexin [CEPHALEXIN] Allergy Severe CHEST Verified 09/29/20 12:41 PAIN, ARMS 'REALLY RED' clindamycin [CLINDAMYCIN] Allergy Severe CHEST Verified 09/29/20 12:41 PAIN, ARMS 'REALLY RED' Sulfa (Sulfonamide Allergy Intermediate RASH, Verified 09/29/20 12:41 Antibiotics) DIAPHORESIS amoxicillin [AMOXICILLIN] Allergy Unknown Verified 09/29/20 12:41 Penicillins [PENICILLINS] Allergy Unknown Verified 09/29/20 12:41 omeprazole [OMEPRAZOLE] AdvReac Severe vomitting Verified 09/29/20 12:41 Review of Systems <DEWAYNE Caballero - Last Filed: 11/09/20 17:54> Review of Systems Narrative: General: denies fever, chills Head/Neck: denies headache, neck pain Eyes: denies visual changes, eye pain Cardio: denies chest pain, palpitations Respiratory: denies shortness of breath, cough GI: denies abdominal pain, nausea, vomiting, or diarrhea : denies dysuria, hematuria MSK: denies joint pain, muscle weakness Skin: denies rash, itching, left groin with greenish blush bruising Neuro: denies numbness, tingling Patient History <DEWAYNE Caballero - Last Filed: 11/09/20 17:54> Medical History History of asthma Inguinal hernia Seasonal allergic rhinitis Surgical History History of esophagogastroduodenoscopy (EGD) Status post colonoscopy Family History Mother Mitral valve prolapse Social History Smoking Status: Former smoker Tobacco: How many years used: 2 Smokeless tobacco user: dissolvable tobacco (nicotine salt) alcohol intake: current (2 pints a wk ) substance use type: does not use Smoking Status: Former smoker alcohol intake frequency: a few times a month Alcohol type: beer Substance Use Type: does not use Exam <DEWAYNE Caballero - Last Filed: 11/09/20 17:54> Narrative Exam Narrative: Independently reviewed vitals signs and nursing notes. General: Awake, alert, nontoxic, no cardiorespiratory distress Head/Neck: Atraumatic, neck full range of motion Eyes: EOMI, conjunctiva normal Nose: nares patent, no rhinorrhea Mouth/Throat: moist mucus membranes, posterior pharynx normal, no oral lesions Cardio: Regular rate and rhythm, no peripheral edema Respiratory: respirations unlabored without wheezing, stridor, or rales. No retractions. GI: Abdomen soft, nontender MSK: Moves all extremities, neurovascularly intact Skin: Normal capillary refill, no rash, left groin with no edema, no pulsatile mass, femoral artery with strong poles, + ecchymosis to left groin. Neuro: Normal speech and cognition, normal gait Initial Vital Signs Initial Vital Signs: Vital Signs Temperature 97.9 F 11/09/20 13:17 Pulse Rate 96 H 11/09/20 13:17 Respiratory Rate 20 11/09/20 13:17 Blood Pressure 158/97 H 11/09/20 13:17 Pulse Oximetry 100 11/09/20 13:17 <Dorothy Malcolm DO - Last Filed: 11/14/20 03:31> Initial Vital Signs Initial Vital Signs: Vital Signs Temperature 97.9 F 11/09/20 13:17 Pulse Rate 96 H 11/09/20 13:17 Respiratory Rate 20 11/09/20 13:17 Blood Pressure 158/97 H 11/09/20 13:17 Pulse Oximetry 100 11/09/20 13:17 Course <DEWAYNE Caballero - Last Filed: 11/09/20 17:54> Orders Ordered: ED Orders 11/09/20 13:34 US arterial duplex LE LT Stat Vital Signs Vital signs: Vital Signs - 8 hr 11/09/20 13:17 Temperature 97.9 F Pulse Rate 96 H Respiratory Rate 20 Blood Pressure 158/97 H Pulse Oximetry 100 <Dorothy Malcolm DO - Last Filed: 11/14/20 03:31> Orders Ordered: ED Orders 11/09/20 13:34 US arterial duplex LE LT Stat Vital Signs Vital signs: Vital Signs - 8 hr 11/09/20 13:17 Temperature 97.9 F Pulse Rate 96 H Respiratory Rate 20 Blood Pressure 158/97 H Pulse Oximetry 100 MDM - Extremity (Nontraumatic) <DEWAYNE Caballero - Last Filed: 11/09/20 17:54> Imaging Data US arterial Duplex LE: Radiologist's Impression: PROCEDURE:? US ARTERIAL DUPLEX LE LT ? INDICATIONS:? ?GROIN PSEUDOANEURYSM. RECENT HEART CATHERITIZATION. ? TECHNIQUE:? Color and pulse Doppler interrogation was performed of the left lower extremity arterial system, with image documentation.? Images of the venous system were also acquired. ? COMPARISON:? [facility], , US ARTERIAL LOWER EXTREMITY DOPPLER LEFT, 11/03/2020, 19:14. ? FINDINGS:? In this patient with this given history, scrutiny is given to pseudoaneurysm of the groin.? No findings of a groin pseudoaneurysm can be seen. ? Common femoral artery:? 143 cm/sec, with triphasic flow.? Deep femoral artery:? 90 cm/sec, with triphasic flow.? Proximal superficial femoral artery:? 88 cm/sec, with triphasic flow.? ? On these images, no venous abnormality is seen. ? ? IMPRESSION:? Negative for pseudoaneurysm. ? No regional arterial abnormality can be seen. ? No left lower extremity venous abnormality is seen. ? ? ? Dictated by: Brandon Aguilar M.D. on 11/09/2020 at 15:45 ? ? Approved by: Brandon Aguilar M.D. on 11/09/2020 at 15:47 ? MDM Narrative Medical decision making narrative: 30-year-old male history of SVT status post left groin approach heart catheterization November 03 presents to the emergency department with concern for pseudoaneurysm of left groin site. Nurse line at doctor's office instructed him to come to the ED for an ultrasound. His ultrasound was negative for pseudoaneurysm or other venous abnormality. No regional arterial abnormality visible either. Patient's groin site is healing as anticipated. Vitals were within normal limits. Patient is appropriate and amenable to discharge home. Vital signs are stable on repeat examination is unremarkable. Patient has been informed of results. Patient has been given strict return to ER precautions for any new or worsening symptoms. Patient understands to follow up closely with outpatient providers as instructed. Patient understands plan and agrees to discharge home. All questions and concerns answered at this time. Discharge Plan Departure Patient Disposition: Home Clinical Impression: Healing wound Activity Restrictions/Additional Instructions: *You have been diagnosed with a wound healing as anticipated. There was no pseudoaneurysm on ultrasound. *What to do: *Please continue to take your regular medications as directed. [ ] New medication prescriptions sent to your pharmacy: [ ] [ ] New medication written as a paper prescription [x] No new medications given *Please follow up with your primary care provider in 2-3 days, call for an appointment. Let them know you were seen in the Emergency Department and that we ask that you be seen in follow up. We will electronically transmit a record of today's note if your PCP is in our system *If you do not have a primary care provider please contact the [facility] Resource line at [phone]. They will ask some questions about your medical history and help get you set up with a doctor in the community. *Return to Emergency Department if you should have any new, worsening or concerning symptoms, such as [fever greater than 101F, chills, worsening pain, persistent vomiting or other bothersome symptoms] Prescriptions: No Action montelukast [Singulair] 10 mg tablet 10 mg PO BEDTIME Qty: 30 RF: 1 cyclobenzaprine 10 mg tablet 10 mg PO TID PRN (Reason: muscle spasm) Qty: 14 RF: 0 Referrals: Mayank Wood DO [Primary Care Provider] - <Dorothy Malcolm DO - Last Filed: 11/14/20 03:31> Cosign ED Attending Jackieature Attestation: I was immediately available in the department for consultation. Documentation has been reviewed. I agree with assessment and plan.
== END 2020-11-09 17:48 | disposition home or self-care (01) ==
PROVIDERS: Emergency Provider Nurse Practitioner Critical Care Medicine; PCP Family Medicine
DX: Z98.890 Other specified postprocedural states (principal)
CPT/HCPCS: 93926; 99283

== ENCOUNTER 2021-01-27 08:50 | Emergency (ER) | payer OTHER, MEDICAID, SELFPAY ==
[2021-01-27 09:22] VITALS: BP 127/79; PULSE 72; RESP 16; TEMP 36.8; O2SAT 100; BMI 24.3
--- NOTE | 2021-01-27 09:23 | ED_ITS ---
HPI - General Adult General Chief complaint: Chest Pain Stated complaint: Afib shoulder jaw pain Time Seen by Provider: 01/27/21 09:00 Source: patient Mode of arrival: Ambulatory Limitations: no limitations History of Present Illness HPI narrative: Patient is a 30-year-old male. Sometime within the past 3 months patient had an ablation. This is secondary to what he describes as SVT but also mention the diagnosis of [id number]-Cgqil. After the ablation he did have some episodes of SVT but they all self resolved. He was told that this was normal after this type of a procedure. For the past couple days he has had episodes where he feels like his heart is skipping beats and beating fast and other types of arrhythmias. No fevers. Under vaccinated against COVID. No shortness of breath. Stating that he does sometimes have jaw discomfort. Related Data Previous Rx's Medication Instructions Recorded montelukast 10 mg tablet 10 mg PO BEDTIME #30 tab 06/03/20 (Singulair) cyclobenzaprine 10 mg tablet 10 mg PO TID PRN #14 tab 10/05/20 Allergies Allergy/AdvReac Type Severity Reaction Status Date / Time cephalexin [CEPHALEXIN] Allergy Severe CHEST Verified 09/29/20 12:41 PAIN, ARMS 'REALLY RED' clindamycin [CLINDAMYCIN] Allergy Severe CHEST Verified 09/29/20 12:41 PAIN, ARMS 'REALLY RED' Sulfa (Sulfonamide Allergy Intermediate RASH, Verified 09/29/20 12:41 Antibiotics) DIAPHORESIS amoxicillin [AMOXICILLIN] Allergy Unknown Verified 09/29/20 12:41 Penicillins [PENICILLINS] Allergy Unknown Verified 09/29/20 12:41 omeprazole [OMEPRAZOLE] AdvReac Severe vomitting Verified 09/29/20 12:41 Review of Systems Constitutional Constitutional: Denies fever(s) Cardiovascular Cardiovascular: Reports as per HPI and Reports system reviewed and no additional complaints, except as documented Respiratory Respiratory: Reports as per HPI and Reports system reviewed and no additional complaints, except as documented Gastrointestinal Gastrointestinal: Reports system reviewed and no additional complaints, except as documented Hematologic/Lymphatic On Anticoagulants: No Patient History Medical History History of asthma Inguinal hernia Seasonal allergic rhinitis Surgical History History of esophagogastroduodenoscopy (EGD) Status post colonoscopy Family History Mother Mitral valve prolapse Social History Smoking Status: Former smoker Tobacco: How many years used: 2 Smokeless tobacco user: dissolvable tobacco (nicotine salt) alcohol intake: current (2 pints a wk ) substance use type: does not use Smoking Status: Former smoker alcohol intake frequency: a few times a month Alcohol type: beer Substance Use Type: does not use Exam Initial Vital Signs Initial Vital Signs: Vital Signs Temperature 98.3 F 01/27/21 09:22 Pulse Rate 72 01/27/21 09:22 Respiratory Rate 16 01/27/21 09:22 Blood Pressure 127/79 01/27/21 09:22 Pulse Oximetry 100 01/27/21 09:22 Const General: cooperative, healthy appearing and comfortable HENMT Head: normal to inspection and normocephalic Resp Effort & Inspection: normal respiratory effort Auscultation: clear to auscultation bilaterally Cardio Rate: regular rate Rhythm: regular rhythm Skin General: no rashes or lesions noted Neuro General: patient alert, patient awake, patient oriented x3 and moves all extremities Extrem General: normal to inspection, capillary refill normal and No edema Psych Appearance: grossly normal and well kempt Course Orders Ordered: ED Orders 01/27/21 09:01 EKG-12 Lead Stat 01/27/21 09:15 Basic Metabolic Panel Stat COVID19 -Nasal swab/Pre-Proc Stat Complete Blood Count AUTO DIFF Stat Magnesium Stat Thyroid Stimulating Hormone Stat Troponin & CK Cardiac Panel Stat Vital Signs Vital signs: Vital Signs - 8 hr 01/27/21 09:22 01/27/21 10:00 Temperature 98.3 F Pulse Rate 72 69 Respiratory Rate 16 15 Blood Pressure 127/79 136/83 Pulse Oximetry 100 99 Medical Decision Making Lab Data Result diagrams: 01/27/21 09:15 01/27/21 09:15 Labs: Lab Results 01/27/21 01/27/21 01/27/21 Range/Units 09:15 09:15 09:15 WBC 3.6 L (4.5-11.0) X10^3/uL RBC 4.79 (4.5-5.9) X10^6/uL Hgb 15.4 (13.5-17.5) g/dL Hct 44.1 (41-53) % MCV 92.1 (80-100) fL MCH 32.0 (26-34) PG MCHC 34.8 (30-36) % RDW 12.6 (11.6-14.8) % Plt Count 130 L (150-400) X10^3/uL Neut % (Auto) 66.3 (50-75) % Lymph % (Auto) 25.9 (25-40) % [place] % (Auto) 6.2 (3-14) % Eos % (Auto) 1.2 L (2-4) % Baso % (Auto) 0.4 (0-2) % Neut # (Auto) 2400 (6107-8096) /uL Lymph # (Auto) 900 L (3061-8487) /uL [place] # (Auto) 200 (0-900) /uL Eos # (Auto) 0 (0-450) /uL Baso # (Auto) 0 (0-100) /uL Sodium 138 (137-145) mmol/L Potassium 4.1 (3.4-5.1) mmol/L Chloride 101 (98-107) mmol/L Carbon Dioxide 28 (22-32) mmol/L BUN 11 (9-20) mg/dL Creatinine 0.70 (0.66-1.25) mg/dL Estimated GFR > 60.0 (>60) mL/min BUN/Creatinine Ratio 15.7 (6-22) Glucose 98 (70-100) mg/dL Calcium 9.6 (8.4-10.2) mg/dL Magnesium 1.7 (1.6-2.3) mg/dL Total Creatine Kinase (55-170) U/L CK-MB (CK-2) (<2.37) ng/mL CK-MB (CK-2) Rel Index (1.5-5.0) % Troponin I (0.01-0.034) ng/mL TSH (0.47-4.68) uIU/mL SARS-CoV-2 (PCR) Negative (Negative) 01/27/21 01/27/21 Range/Units 09:15 09:15 WBC (4.5-11.0) X10^3/uL RBC (4.5-5.9) X10^6/uL Hgb (13.5-17.5) g/dL Hct (41-53) % MCV (80-100) fL MCH (26-34) PG MCHC (30-36) % RDW (11.6-14.8) % Plt Count (150-400) X10^3/uL Neut % (Auto) (50-75) % Lymph % (Auto) (25-40) % [place] % (Auto) (3-14) % Eos % (Auto) (2-4) % Baso % (Auto) (0-2) % Neut # (Auto) (3788-0724) /uL Lymph # (Auto) (8130-1457) /uL [place] # (Auto) (0-900) /uL Eos # (Auto) (0-450) /uL Baso # (Auto) (0-100) /uL Sodium (137-145) mmol/L Potassium (3.4-5.1) mmol/L Chloride (98-107) mmol/L Carbon Dioxide (22-32) mmol/L BUN (9-20) mg/dL Creatinine (0.66-1.25) mg/dL Estimated GFR (>60) mL/min BUN/Creatinine Ratio (6-22) Glucose (70-100) mg/dL Calcium (8.4-10.2) mg/dL Magnesium (1.6-2.3) mg/dL Total Creatine Kinase 233 H (55-170) U/L CK-MB (CK-2) 1.51 (<2.37) ng/mL CK-MB (CK-2) Rel Index 0.6 L (1.5-5.0) % Troponin I < 0.012 (0.01-0.034) ng/mL TSH 1.56 (0.47-4.68) uIU/mL SARS-CoV-2 (PCR) (Negative) ECG Data Attestation: I personally reviewed and interpreted this ECG as follows: Interpretation: Sinus rhythm Ventricular rate of 76 Normal axis Normal QRS Normal QTC No ST T wave changes MDM Narrative Medical decision making narrative: Patient has had no ectopy since arrival here in the emergency department any has had some mild symptoms. His EKG is unremarkable. Labs unremarkable. Chest x- ray is unremarkable. There are no findings on his EKG that would make me concerned about further episodes of Wocfb-[id number]-Pdmfm. I did discuss this with him. He will continue all of his medications. Keep all of his scheduled medical points. Did discuss following of this primary doctor for a Holter monitor. He was given return precautions. He expressed understanding and agreement the plan. Discharge Plan Departure Patient Disposition: Home Clinical Impression: Palpitations Instructions: DI for Arrhythmias Activity Restrictions/Additional Instructions: Your workup here in the emergency department is very reassuring. You did not have any abnormal heart rate or rhythm on the monitors today. I recommend you talk with your primary doctor about a Holter monitor. Return to the emergency department for any new or worsening symptoms Prescriptions: No Action montelukast [Singulair] 10 mg tablet 10 mg PO BEDTIME Qty: 30 1RF cyclobenzaprine 10 mg tablet 10 mg PO TID PRN (Reason: muscle spasm) Qty: 14 0RF Referrals: Mayank Wood DO [Primary Care Provider] -
[2021-01-27 09:28] LABS: Add Manual Diff / Slide Review NO; Basophils Absolute Auto 0 /uL (0-100); Basophils Percent Auto 0.4 % (0-2); Eosinophils Absolute Auto 0 /uL (0-450); Eosinophils Percent Auto 1.2 % (2-4); Hematocrit 44.1 % (41-53); Hemoglobin 15.4 g/dL (13.5-17.5); Lymphocytes Absolute Auto 900 /uL (1100-4500); Lymphocytes Percent Auto 25.9 % (25-40); Mean Corpuscular HGB Conc 34.8 % (30-36); Mean Corpuscular Volume 92.1 fL (80-100); Monocytes Absolute Auto 200 /uL (0-900); Monocytes Percent Auto 6.2 % (3-14); Neutrophils Absolute Auto 2400 /uL (1500-7000); Neutrophils Percent Auto 66.3 % (50-75); Platelet Count 130 X10^3/uL (150-400); Red Blood Cell Count 4.79 X10^6/uL (4.5-5.9); Red Cell Distribution Width 12.6 % (11.6-14.8); White Blood Cell Count 3.6 X10^3/uL (4.5-11.0)
[2021-01-27 09:38] LABS: Creatine Kinase 233 U/L (55-170)
[2021-01-27 09:40] LABS: BUN Creatinine Ratio 15.7 (6-22); Blood Urea Nitrogen 11 mg/dL (9-20); Calcium 9.6 mg/dL (8.4-10.2); Carbon Dioxide 28 mmol/L (22-32); Chloride 101 mmol/L (98-107); Estimated Glomerular Filt Rate > 60.0 mL/min (>60); Glucose 98 mg/dL (70-100); HEMOLYSIS < 15 (0-50); Magnesium 1.7 mg/dL (1.6-2.3); Potassium 4.1 mmol/L (3.4-5.1); Sodium 138 mmol/L (137-145)
[2021-01-27 09:42] LABS: COVID19 -Nasal RAPID Negative (Negative)
[2021-01-27 09:51] LABS: Troponin I < 0.012 ng/mL (0.01-0.034)
[2021-01-27 09:54] LABS: CKMB % Relative Index 0.6 % (1.5-5.0); Creatine Kinase MB 1.51 ng/mL (<2.37)
[2021-01-27 10:00] VITALS: BP 136/83; PULSE 69; RESP 15; O2SAT 99
[2021-01-27 10:10] LABS: Thyroid Stimulating Hormone 1.56 uIU/mL (0.47-4.68)
--- NOTE | 2021-01-27 10:19 | PC.NURSE ---
Pt rang stating that he felt as if his heart rate was elevated. noted to be 110, sinus tach. Pt appears to be slightly anxious. Taught and walked through four square breathing and heart rate returned to 68.
[2021-01-27 11:11] VITALS: BP 140/95; PULSE 81; RESP 18; O2SAT 97
== END 2021-01-27 11:13 | disposition home or self-care (01) ==
PROVIDERS: Emergency Provider Emergency Medicine; PCP Family Medicine
DX: R00.2 Palpitations (principal); Z20.822 Contact with and (suspected) exposure to COVID-19
CPT/HCPCS: 36415; 80048; 82550; 82553; 83735; 84443; 84484; 85025; 87635; 93005; 99283; C9803

== ENCOUNTER → 2021-03-03 15:18 | Outpatient (CLI) | payer OTHER, MEDICAID, SELFPAY ==
[2021-03-03 15:44] LABS: COVID19 -Nasal RAPID POSITIVE (Negative)
== END ==
PROVIDERS: PCP Family Medicine; Visit Provider Nurse Practitioner Family
DX: Z20.822 Contact with and (suspected) exposure to COVID-19 (principal)
CPT/HCPCS: 87635

== ENCOUNTER 2022-08-25 19:58 | Emergency (ER) | payer SELFPAY ==
[2022-08-25] VITALS (13 sets, daily range): BP systolic 123–173; BP diastolic 66–97; PULSE 74–87; RESP 13–24; TEMP 36.9; O2SAT 93–100; BMI 38.4
--- NOTE | 2022-08-25 20:10 | DI.RAD.S_ITS ---
PROCEDURE: XR CHEST 1V INDICATIONS: chest pain TECHNIQUE: One view of the chest was acquired. COMPARISON: [facility], , CHEST 1 VIEW, 09/21/2013, 17:27. FINDINGS: Surgical changes and devices: None. Lungs and pleura: Lungs are clear. No pleural effusions or pneumothorax. Mediastinum: Mediastinal contours appear normal. Heart size is normal. Bones and chest wall: No suspicious bony lesions. Overlying soft tissues appear unremarkable. IMPRESSION: 1. No acute cardiopulmonary disease. Dictated by: Aditya Pool M.D. on 08/25/2022 at 21:09 Approved by: Aditya Pool M.D. on 08/25/2022 at 21:09
[2022-08-25 20:38] LABS: Add Manual Diff / Slide Review NO; Basophils Absolute Auto 100 /uL (0-100); Basophils Percent Auto 1.1 % (0-2); Eosinophils Absolute Auto 100 /uL (0-450); Eosinophils Percent Auto 2.3 % (2-4); Hematocrit 44.2 % (41-53); Hemoglobin 15.7 g/dL (13.5-17.5); Lymphocytes Absolute Auto 1700 /uL (1100-4500); Lymphocytes Percent Auto 29.5 % (25-40); Mean Corpuscular HGB Conc 35.6 % (30-36); Mean Corpuscular Hemoglobin 31.7 PG (26-34); Mean Corpuscular Volume 89.1 fL (80-100); Monocytes Absolute Auto 400 /uL (0-900); Monocytes Percent Auto 6.8 % (3-14); Neutrophils Absolute Auto 3500 /uL (1500-7000); Neutrophils Percent Auto 60.3 % (50-75); Platelet Count 145 X10^3/uL (150-400); Red Blood Cell Count 4.96 X10^6/uL (4.5-5.9); Red Cell Distribution Width 13.2 % (11.6-14.8); White Blood Cell Count 5.8 X10^3/uL (4.5-11.0)
[2022-08-25 20:46] LABS: INR 0.9 (0.9-1.3); Prothrombin Time 10.8 SECONDS (10.1-12.7)
[2022-08-25 20:49] LABS: PTT Partial Thromboplastin Tim 31 SECONDS (26-36)
[2022-08-25 20:52] LABS: Alanine Aminotransferase 144 IU/L (<50); Albumin 4.6 g/dL (3.5-5.0); Albumin Globulin Ratio 1.5 (1.0-2.8); Alkaline Phosphatase 94 U/L (38-126); Aspartate Aminotransferase 65 IU/L (17-59); BUN Creatinine Ratio 17.5 (6-22); Bilirubin Total 0.5 mg/dL (0.2-1.3); Blood Urea Nitrogen 18 mg/dL (9-20); Calcium 9.2 mg/dL (8.4-10.2); Carbon Dioxide 28 mmol/L (22-32); Chloride 100 mmol/L (98-107); Creatine Kinase 358 U/L (55-170); Estimated Glomerular Filt Rate > 60 mL/min (>60); Glucose 99 mg/dL (70-100); HEMOLYSIS 37 (0-50); Lipase 142 U/L (23-300); Magnesium 1.8 mg/dL (1.6-2.3); Potassium 3.9 mmol/L (3.4-5.1); Sodium 136 mmol/L (137-145); Total Protein 7.6 g/dL (6.3-8.2)
[2022-08-25 21:04] LABS: Troponin I < 0.012 ng/mL (0.01-0.034)
[2022-08-25 21:14] LABS: D Dimer 500 ng/ml (<500)
[2022-08-25 21:59] LABS: Thyroid Stimulating Hormone 4.58 uIU/mL (0.47-4.68)
--- NOTE | 2022-08-25 22:37 | ED_ITS ---
HPI - Chest Pain General Chief Complaint: Chest Pain Stated Complaint: chest pain, difficulty breathing, cardiac hx Time Seen by Provider: 08/25/22 20:55 Source: patient Mode of arrival: Ambulatory Limitations: no limitations History of Present Illness HPI narrative: Patient is a 32-year-old male history of SVT since the age of 1 with an ablation presenting today with 2 weeks of chest pain. Unless left side of his chest. He said it started after he flew to [place] to [facility]. He said it happened at [facility] was checked out by nurses at [facility] thought to be secondary to dehydration however it has continued. He is able to get up and walk around he does not have chest pain then not short of breath. He says when he sits down he gets sharp stabbing pain. It seems to come and go lasting any where from like 3-10 minutes. Seems to be in a similar area but not really reproducible. He is able to lay flat. He is not had fever chills or cough. Related Data Previous Rx's Medication Instructions Recorded montelukast 10 mg tablet 10 mg PO BEDTIME #30 tabs 06/03/20 (Singulair) cyclobenzaprine 10 mg tablet 10 mg PO TID PRN muscle spasm #14 10/05/20 tabs metoprolol succinate 25 mg 25 mg PO DAILY #30 tabs 05/28/21 tablet,extended release 24 hr Allergies Allergy/AdvReac Type Severity Reaction Status Date / Time cephalexin [CEPHALEXIN] Allergy Severe CHEST Verified 09/29/20 12:41 PAIN, ARMS 'REALLY RED' clindamycin [CLINDAMYCIN] Allergy Severe CHEST Verified 09/29/20 12:41 PAIN, ARMS 'REALLY RED' Sulfa (Sulfonamide Allergy Intermediate RASH, Verified 09/29/20 12:41 Antibiotics) DIAPHORESIS amoxicillin [AMOXICILLIN] Allergy Unknown Verified 09/29/20 12:41 Penicillins [PENICILLINS] Allergy Unknown Verified 09/29/20 12:41 omeprazole [OMEPRAZOLE] AdvReac Severe vomitting Verified 09/29/20 12:41 Review of Systems Review of Systems ROS Unobtainable: All systems reviewed & are unremarkable except as noted in HPI and below Patient History Medical History History of asthma Inguinal hernia Seasonal allergic rhinitis Surgical History History of esophagogastroduodenoscopy (EGD) Status post colonoscopy Family History Mother Mitral valve prolapse Social History Smoking Status: Former smoker Tobacco: How many years used: 2 Smokeless tobacco user: dissolvable tobacco (nicotine salt) alcohol intake: current (2 pints a wk ) substance use type: does not use Smoking Status: Former smoker alcohol intake frequency: a few times a month Alcohol type: beer Substance Use Type: does not use Exam Initial Vital Signs Initial Vital Signs: Vital Signs Temperature 98.4 F 08/25/22 20:01 Pulse Rate 86 08/25/22 20:01 Respiratory Rate 20 08/25/22 20:01 Blood Pressure 173/93 H 08/25/22 20:01 Pulse Oximetry 100 08/25/22 20:01 Oxygen Delivery Method Room Air 08/25/22 20:01 GENERAL: Pleasant 32-year-old male and in no acute distress. HEENT: Head atraumatic,EOMI, pupils reactive, face symmetric, moist mucous membranes CARDIOVASCULAR: Regular rate and rhythm without murmurs, rubs or gallops. Pain is not reproducible palpation RESPIRATORY: Breath sounds equal bilaterally, no wheezes rales or rhonchi. ABDOMEN: Soft, nontender. Normoactive bowel sounds all 4 quadrants. No guarding or rebound. EXTREMITIES: Normal range of motion, no clubbing or edema. Neurovascularly intact NEUROLOGICAL: Alert and oriented x4.Normal gait and speech. SKIN: Warm, dry, no laceration, no petechiae, no rashes or lesions. Scores PERC Score Age greater than or equal to 50 years: No Heart rate greater than or equal to 100 bpm: No Room Air O2 Sat less than 95%: Yes Unilateral leg swelling: No Recent trauma or surgery: No Hemoptysis: No Prior PE or DVT: No Hormone Use: No Total PERC Score: 1 Course Orders Ordered: ED Orders 08/25/22 20:10 XR chest 1V Stat EKG-12 Lead Stat 08/25/22 20:25 Complete Blood Count AUTO DIFF Stat Comprehensive Metabolic Panel Stat D Dimer Stat Lipase Stat Magnesium Stat PTT Partial Thromboplastin Devin Stat Prothrombin Time INR Stat TSH [Thyroid Stimulating Hormone] Stat Troponin & CK Cardiac Panel Stat 08/25/22 22:15 Trop I [Troponin I] Stat Discontinued Medications Ketorolac Tromethamine (Ketorolac 30 Mg/Ml Vial) 15 mg IV NOW ONE Stop: 08/25/22 22:37 Last Admin: 08/25/22 23:09 Dose: 15 mg Documented By: ST Vital Signs Vital signs: Vital Signs - 8 hr 08/25/22 20:16 08/25/22 20:28 08/25/22 20:28 Pulse Rate 83 78 Respiratory Rate 22 19 Blood Pressure 146/96 H Pulse Oximetry 100 98 08/25/22 20:30 08/25/22 20:30 08/25/22 21:00 Pulse Rate 77 86 Respiratory Rate 18 17 Blood Pressure 151/97 H Pulse Oximetry 99 95 08/25/22 21:01 08/25/22 21:01 08/25/22 21:30 Pulse Rate 87 82 Respiratory Rate 15 24 Blood Pressure 141/71 H Pulse Oximetry 93 94 08/25/22 21:31 08/25/22 21:31 08/25/22 22:00 Pulse Rate 82 Respiratory Rate 20 Blood Pressure 140/82 130/80 Pulse Oximetry 94 08/25/22 22:00 08/25/22 22:30 08/25/22 22:30 Pulse Rate 77 79 Respiratory Rate 17 16 Blood Pressure 133/84 Pulse Oximetry 94 95 08/25/22 23:00 08/25/22 23:01 08/25/22 23:01 Pulse Rate 79 80 Respiratory Rate 22 18 Blood Pressure 130/66 Pulse Oximetry 94 93 08/25/22 23:30 08/25/22 23:30 08/26/22 00:00 Pulse Rate 74 Respiratory Rate 13 Blood Pressure 123/81 117/75 Pulse Oximetry 95 08/26/22 00:00 Pulse Rate 70 Respiratory Rate 21 Blood Pressure Pulse Oximetry 94 MDM - Chest Pain Lab Data 08/25/22 20:25 08/25/22 20:25 Labs: Lab Results 08/25/22 08/25/22 08/25/22 Range/Units 20:25 20:25 20:25 WBC 5.8 (4.5-11.0) X10^3/uL RBC 4.96 (4.5-5.9) X10^6/uL Hgb 15.7 (13.5-17.5) g/dL Hct 44.2 (41-53) % MCV 89.1 (80-100) fL MCH 31.7 (26-34) PG MCHC 35.6 (30-36) % RDW 13.2 (11.6-14.8) % Plt Count 145 L (150-400) X10^3/uL Neut % (Auto) 60.3 (50-75) % Lymph % (Auto) 29.5 (25-40) % [place] % (Auto) 6.8 (3-14) % Eos % (Auto) 2.3 (2-4) % Baso % (Auto) 1.1 (0-2) % Neut # (Auto) 3500 (9700-6104) /uL Lymph # (Auto) 1700 (5360-5829) /uL [place] # (Auto) 400 (0-900) /uL Eos # (Auto) 100 (0-450) /uL Baso # (Auto) 100 (0-100) /uL PT 10.8 (10.1-12.7) SECONDS INR 0.9 (0.9-1.3) APTT 31 (26-36) SECONDS D-Dimer (<500) ng/ml Sodium 136 L (137-145) mmol/L Potassium 3.9 (3.4-5.1) mmol/L Chloride 100 (98-107) mmol/L Carbon Dioxide 28 (22-32) mmol/L BUN 18 (9-20) mg/dL Creatinine 1.03 (0.66-1.25) mg/dL Estimated GFR > 60 (>60) mL/min BUN/Creatinine Ratio 17.5 (6-22) Glucose 99 (70-100) mg/dL Calcium 9.2 (8.4-10.2) mg/dL Magnesium 1.8 (1.6-2.3) mg/dL Total Bilirubin 0.5 (0.2-1.3) mg/dL AST 65 H (17-59) IU/L ALT 144 H (<50) IU/L Alkaline Phosphatase 94 (38-126) U/L Total Creatine Kinase 358 H (55-170) U/L CK-MB (CK-2) TNP CK-MB (CK-2) Rel Index TNP Troponin I < 0.012 (0.01-0.034) ng/mL Total Protein 7.6 (6.3-8.2) g/dL Albumin 4.6 (3.5-5.0) g/dL Globulin 3.0 (1.7-4.1) g/dL Albumin/Globulin Ratio 1.5 (1.0-2.8) Lipase 142 (23-300) U/L TSH (0.47-4.68) uIU/mL 08/25/22 08/25/22 08/25/22 Range/Units 20:25 20:25 22:15 WBC (4.5-11.0) X10^3/uL RBC (4.5-5.9) X10^6/uL Hgb (13.5-17.5) g/dL Hct (41-53) % MCV (80-100) fL MCH (26-34) PG MCHC (30-36) % RDW (11.6-14.8) % Plt Count (150-400) X10^3/uL Neut % (Auto) (50-75) % Lymph % (Auto) (25-40) % [place] % (Auto) (3-14) % Eos % (Auto) (2-4) % Baso % (Auto) (0-2) % Neut # (Auto) (5271-7775) /uL Lymph # (Auto) (0125-1454) /uL [place] # (Auto) (0-900) /uL Eos # (Auto) (0-450) /uL Baso # (Auto) (0-100) /uL PT (10.1-12.7) SECONDS INR (0.9-1.3) APTT (26-36) SECONDS D-Dimer 500 (<500) ng/ml Sodium (137-145) mmol/L Potassium (3.4-5.1) mmol/L Chloride (98-107) mmol/L Carbon Dioxide (22-32) mmol/L BUN (9-20) mg/dL Creatinine (0.66-1.25) mg/dL Estimated GFR (>60) mL/min BUN/Creatinine Ratio (6-22) Glucose (70-100) mg/dL Calcium (8.4-10.2) mg/dL Magnesium (1.6-2.3) mg/dL Total Bilirubin (0.2-1.3) mg/dL AST (17-59) IU/L ALT (<50) IU/L Alkaline Phosphatase (38-126) U/L Total Creatine Kinase (55-170) U/L CK-MB (CK-2) CK-MB (CK-2) Rel Index Troponin I < 0.012 (0.01-0.034) ng/mL Total Protein (6.3-8.2) g/dL Albumin (3.5-5.0) g/dL Globulin (1.7-4.1) g/dL Albumin/Globulin Ratio (1.0-2.8) Lipase (23-300) U/L TSH 4.58 (0.47-4.68) uIU/mL Imaging Data Chest x-ray: Radiologist's Impression: PROCEDURE:? XR CHEST 1V ? INDICATIONS:? chest pain ? TECHNIQUE:? One view of the chest was acquired.? ? COMPARISON:? [facility], , CHEST 1 VIEW, 09/21/2013, 17:27. ? FINDINGS:? ? Surgical changes and devices:? None.? ? Lungs and pleura:? Lungs are clear.? No pleural effusions or pneumothorax.? ? Mediastinum:? Mediastinal contours appear normal.? Heart size is normal.? ? Bones and chest wall:? No suspicious bony lesions.? Overlying soft tissues appear unremarkable.? ? IMPRESSION:? ? 1.? No acute cardiopulmonary disease. ? ? ? Dictated by: Aditya Pool M.D. on 08/25/2022 at 21:09? [facility] Narrative Medical decision making narrative: Patient 32-year-old male presenting today left-sided chest pain which does seem to be positional he is okay with walking and then has pain when he down. Not short of breath hypoxic or tachycardic. He did have recent travel D-dimer is exactly 500. He discussed how pulmonary embolism maybe likely but not totally convinced. He is not having an arrhythmia. Other blood work is overall reassuring without anemia electrolyte abnormality or other symptoms. Repeat troponin is also negative no EKG changes. Discussed with patient and possibility of pulmonary embolism would need a CT. At this time patient really would like to go home he understands that there may be blood clot and to come back if it is worse. Although I do suspect it might be low he has a low PERC score 1, point only for O2 sat which does fluctuate from 93-100%. At this time 2- troponins recommend further workup. Also strongly encouraged to return if symptoms got worse. Discharge Plan Departure Patient Disposition: Home Clinical Impression: Atypical chest pain Instructions: DI for Pulmonary Embolism, DI for Atypical Chest Pain Activity Restrictions/Additional Instructions: *You have been diagnosed with atypical chest pain *What to do: At this time he you may need further evaluation. You did just have some recent travel. It seems to be low risk for pulmonary embolism however this has not been ruled out you would need a CT scan. You decided not to have this done today. However if symptoms get worse please return to the emergency department immediately *Continue to take medications as directed *Follow up with your primary care provider in 2-3 days or call [phone] *Return to ER if you should have increasing chest pain palpitation shortness of breath or any new, worsening or concerning symptoms Prescriptions: No Action metoprolol succinate 25 mg tablet extended release 24 hr 25 mg PO DAILY Qty: 30 2RF montelukast [Singulair] 10 mg tablet 10 mg PO BEDTIME Qty: 30 1RF cyclobenzaprine 10 mg tablet 10 mg PO TID PRN (Reason: muscle spasm) Qty: 14 0RF Referrals: Mayank Wood DO [Primary Care Provider] - Stand Alone Forms: Patient Portal/API, Work Release Note
[2022-08-25] MEDS: KETOROLAC 30 MG/ML VIAL 15 MG IV (23:09)
--- NOTE | 2022-08-25 23:22 | PC.NURSE ---
Safe handoff report to LANNY Esquivel. Pt resting comfortably with SO at bedside.
[2022-08-26] VITALS: BP 117/75; PULSE 70; RESP 21; O2SAT 94
[2022-08-26 00:07] LABS: Troponin I < 0.012 ng/mL (0.01-0.034)
== END 2022-08-26 00:22 | disposition home or self-care (01) ==
PROVIDERS: Emergency Provider Emergency Medicine; PCP Family Medicine
DX: R07.89 Other chest pain (principal)
CPT/HCPCS: 36415; 71045; 80053; 82550; 83690; 83735; 84443; 84484; 85025; 85379; 85610; 85730; 93005; 96374; 99284; J1885

== ENCOUNTER → 2023-10-03 16:11 | Outpatient (CLI) | payer SELFPAY ==
--- NOTE | 2023-10-03 16:12 | DI.RAD.S_ITS ---
PROCEDURE: XR SHOULDER LT MIN 2V INDICATIONS: LUE pain/cervical radiculopathy; left shoulder pain TECHNIQUE: 3 views of the shoulder were acquired. COMPARISON: None. FINDINGS: Bones: No fractures or dislocations. No suspicious bony lesions. Visualized ribs appear intact. Mild acromioclavicular narrowing. Soft tissues: No suspicious soft tissue calcifications. IMPRESSION: No visualized acute fracture or dislocation. However, if clinical concern and/or pain persist, short interval imaging followup in 7-10 days is recommended, as occult injury cannot be definitively excluded. Dictated by: Lorraine Ventura M.D. on 10/03/2023 at 16:49 Approved by: Lorraine Ventura M.D. on 10/03/2023 at 16:50
--- NOTE | 2023-10-03 16:12 | DI.RAD.S_ITS ---
PROCEDURE: XR CERVICAL SPINE 4V OR 5V INDICATIONS: LUE pain/cervical radiculopathy; left shoulder pain TECHNIQUE: 5 views of the cervical spine were acquired. COMPARISON: None. FINDINGS: Bones: No fractures or dislocations to the T1 level. No suspicious bony lesions. There is normal range of motion between flexion and extension, with preserved normal bony alignment. Soft tissues: Prevertebral soft tissues are normal in thickness. IMPRESSION: Unremarkable exam. Dictated by: Lorraine Ventura M.D. on 10/03/2023 at 16:49 Approved by: Lorraine Ventura M.D. on 10/03/2023 at 16:49
== END ==
LOC: RAD 16:12
PROVIDERS: PCP Family Medicine; Referring Provider Physician Assistant Surgical; Visit Provider Physician Assistant Surgical
DX: M54.12 Radiculopathy, cervical region (principal); M25.512 Pain in left shoulder
CPT/HCPCS: 72050; 73030